=== PATIENT | female | born 1980 | race Caucasian/White ===

== ENCOUNTER 2022-12-21 06:20 | Emergency (ER) | payer MEDICAID ==
[~2022-12-21] VITALS: Ht 170.2 cm; Wt 90.7 kg
[2022-12-21] MEDS ORDERED: CLINDAMYCIN HCL 150 MG CAP PO ONE (07:00)
[2022-12-21] MEDS ORDERED: cefTRIAXone 1GM/50ML D5W 50 ML IV ONE (07:00)
[2022-12-21] MEDS ORDERED: SODIUM CHLORIDE 0.9% 1,000 ML IV ONE (07:00)
[2022-12-21 07:33] LABS: Basophils # (auto) 0 10 ^3/uL (0-0.2); Eosinophils # (auto) 0.2 10 ^3/uL (0-0.8); Hemoglobin 13.5 g/dL (12.2-16.2); Lymphocytes # (auto) 0.9 10 ^3/uL (0.4-5.4); Monocytes # (auto) 0.2 10 ^3/uL (0-1.3); Nucleated Red Blood Cells % 0.3 %
[2022-12-21 07:35] LABS: Basophils % (auto) 0.7 % (0.0-2.0); Eosinophils % (auto) 8.1 % (0.0-7.0); Hematocrit 41.6 % (36.0-46.0); Lymphocytes % (auto) 31.1 % (10.0-50.0); Mean Corpuscular Hemoglobin 28.4 pg (28.0-32.0); Mean Corpuscular Hgb Conc. 32.5 g/dL (32.0-36.0); Mean Corpuscular Volume 87.5 fL (80.0-100.0); Neutrophils # (auto) 1.4 10 ^3/uL (1.6-8.6); Neutrophils % (auto) 51.1 % (37.0-80.0); Red Blood Cells 4.75 10^6/uL (4.0-5.20); White Blood Cell 2.8 10^3/uL (4.4-10.8)
[2022-12-21 07:37] LABS: Red Cell Distribution Width 26.7 % (11.8-14.3)
[2022-12-21 07:40] LABS: INR 1.58 (0.9-1.15); Partial Thromboplastin Time 31.9 SEC (24.5-34.5); Prothrombin Time 16.1 sec (9.3-11.8)
[2022-12-21] MEDS ORDERED: CLIN300C70 PO (07:46)
[2022-12-21] MEDS ORDERED: AMOX500T3 PO (07:46)
[2022-12-21 07:56] LABS: Alanine Aminotransferase 40 U/L (7-40); Albumin 3.5 g/dL (3.2-4.8); Alkaline Phosphatase 283 U/L (46-116); Anion Gap 5 (5-15); Aspartate Aminotransferase 135 U/L (13-40); BUN/Creatinine Ratio 10.6 (10.0-20.0); Blood Urea Nitrogen 7 mg/dL (9-23); Calcium 8.4 mg/dL (8.7-10.4); Carbon Dioxide 30 mmol/L (20-30); Chloride 102 mmol/L (98-107); Glucose 103 mg/dL (74-106); Potassium 3.8 mmol/L (3.5-5.1); Sodium 137 mmol/L (136-145)
[2022-12-21 07:57] LABS: Bilirubin, Total 5.3 mg/dL (0.2-1.0); Total Protein 6.6 g/dL (5.7-8.2)
[2022-12-21 08:11] LABS: Anisocytosis Slight; Platelet Estimate Decreased
[2022-12-21] MEDS ORDERED: IOHEXOL 300 MG/ML 100ML BOTTLE IJ ONE (08:20)
[2022-12-21 09:52] VITALS: PULSE 107; RESP 18; O2SAT 100
[2022-12-21] MEDS ORDERED: ONDANSETRON HCL 4 MG/2 ML VIAL IV ONE (10:30)
[2022-12-21] MEDS ORDERED: MORPHINE SULFATE 4 MG/ML SYR/VIAL IV ONE (10:30)
[2022-12-21 10:33] VITALS: TEMP 98.1
[2022-12-21 12:13] VITALS: BP 156/75; PULSE 62; RESP 18; O2SAT 96
== END 2022-12-21 12:10 | disposition home or self-care (01) ==
LOC: ER 06:20 → EDBD 06:20 → ER 12:10
DX: K04.7 Periapical abscess without sinus (principal); I10 Essential (primary) hypertension; F17.210 Nicotine dependence, cigarettes, uncomplicated; Z86.2 Personal history of diseases of the blood and blood-forming organs and certain disorders involving the immune mechanism; Z98.890 Other specified postprocedural states; Z88.8 Allergy status to other drugs, medicaments and biological substances; Z79.899 Other long term (current) drug therapy
CPT/HCPCS: 36415; 70487; 74176; 80053; 83605; 85025; 85610; 85730; 87040; 93970; 96365; 96375; 99285; J0696; J2270; J2405; Q9967

== ENCOUNTER 2024-01-26 04:32 | Inpatient (IN) | payer MEDICAID ==
[2024-01-26] VITALS (8 sets, daily range): BP systolic 102–122; BP diastolic 53–66; PULSE 83–122; RESP 13–20; TEMP 97.5–99; O2SAT 97
[~2024-01-26] VITALS: Ht 175.3 cm; Wt 131.0 kg
[~2024-01-26 04:32] MED LIST: AMOX500T3 PO; CLIN1CAP70 PO
[2024-01-26] MEDS ORDERED: LORazepam 2MG/ML-1ML VIAL IV ONE (05:00)
[2024-01-26] MEDS ORDERED: diphenhdrAMINE HCL 50 MG/1 ML VL IM ONE (05:15)
[2024-01-26] MEDS: diphenhdrAMINE HCL 50 MG/1 ML VL IV ONE (05:19)
[2024-01-26] MEDS: HALOPERIDOL LACTATE 5 MG/ML INJ VIAL IM ONE (05:19)
[2024-01-26] MEDS: LORazepam 2MG/ML-1ML VIAL IM ONE (05:19)
[2024-01-26] MEDS: SODIUM CHLORIDE 0.9% 1,000 ML IV ONE ×2 (05:53→09:55)
--- NOTE | 2024-01-26 07:04 | ED.PDOC ---
Altered Mental Status HPI Comments 43-year-old female with PMHx Anemia, HTN presents with AMS since this morning. Per at bedside patient was at her baseline yesterday. This morning she woke up confused, incontinent of stool. He reports history of fatty liver disease with elevations in Ammonia. She is on lactulose. He states patient had been constipated recently, reporting abdominal pain. Per EMS patient was combative towards EMS personele. She received Benadryl, Haldol, Ativan on arrival for sedation. denies any recent head injury or other known cause for AMS. Unable to obtain history from patient due to AMS. Chief Complaint: ALOC Time Seen by MD: 06:49 Primary Care Provider: OSCAR Reviewed Notes: [employer]fection[employer] Laboratory Manager Notes, Medications, Allergies Allergies: Coded Allergies: Sulfa Antibiotics (Verified Allergy, Severe, RASH, 01/10/15) Codeine (Verified Adverse Reaction, Severe, NAUSEA, 04/08/11) Home Meds Active Scripts Clindamycin Hcl (Clindamycin Hcl) 300 Mg Cap, 300 MG PO TID for 10 Days, #30 CAP Prov:CADE ALEXANDER MD 12/21/22 Amoxicillin Trihydrate (Amoxicillin) 500 Mg Tab, 1 TAB PO TID for 10 Days, #30 TAB Prov:CADE ALEXANDER MD 12/21/22 Information Source: Spouse Mode of Arrival: EMS Severity: Moderate Timing: Hours Duration: Since onset Prehospital treatment: Accucheck (120 blood sugar ) Quality: Decreased Alertness, Change in Behavior, Confusion Recent: None History of: None Associated Signs and Symptoms: None Vital Signs Vital Signs Date Time Temp Pulse Resp B/P (MAP) Pulse Ox O2 Delivery O2 Flow Rate FiO2 01/26/24 13:12 109 01/26/24 13:09 97.8 13 122/54 97.8 01/26/24 13:01 98 01/26/24 07:58 Room Air* 0 21 Physical Exam General: Patient is lethargic, responsive to pain, Skin: Skin in warm, dry and intact without rashes or lesions. Appropriate color for ethnicity. Nailbeds pink with no cyanosis. HEENT: The head is normocephalic and atraumatic. Conjunctivae are clear without exudates or hemorrhage. Sclera is non-icteric. Face appears swollen. Neck: The neck is supple with normal range of motion. No JVD. Cardiac: Heart rate and rhythm are normal. No murmurs, gallops, or rubs are auscultated. Respiratory: No signs of respiratory distress. Lung sounds are clear in all lobes bilaterally without rales, ronchi, or wheezes. Abdominal: Abdomen is soft, non-tender without distention. Surgical scar present. Umbilicus is midline without herniation. Bowel sounds are present and normoactive in all four quadrants. Extremities: Multiple abrasions and excoriations over the bilateral lower extremities. Neurological: Patient is obtunded, responds to pain, spontaneous eye opening, moving all extremities spontaneously Review of Systems: Unable to assess Past Medical History PAST MEDICAL HISTORY: Anemia, HTN Surgical History: , Hernia Repair Family History Family History: No family hx of DM, No family hx of Heart fartun, No family hx of HTN Social History Smoker: Cigarettes Alcohol: Occasionally Drugs: Denies Drug Use Lives In: Home Was a procedure done? Was a procedure done?: No Differential Diagnosis (ALOC) Differential Diagnosis: Dehydration, Hypoglycemia, Encephalopathy, Mass Lesion, Drug Overdose, ETOH Intoxication (Hyperammonemia, urinary tract infection, other infection), Other X-Ray, Labs, Meds, VS Vital Signs Date Time Temp Pulse Resp B/P (MAP) Pulse Ox O2 Delivery O2 Flow Rate FiO2 01/26/24 13:12 109 01/26/24 13:09 97.8 109 13 122/54 97.8 01/26/24 13:01 98.6 113 18 101/68 (79) 98 98.6 01/26/24 12:51 98.7 105 15 102/53 98.7 01/26/24 12:11 102 15 91/43 (59) 98 01/26/24 11:15 103 26 99/42 (61) 98 01/26/24 10:00 112 16 91/39 (56) 99 01/26/24 09:31 140 01/26/24 08:00 98.5 124 18 91/58 (69) 99 98.5 01/26/24 07:58 122 20 97 Room Air* 0 21 01/26/24 06:00 125 11 141/119 (126) 100 01/26/24 05:00 Room Air* 0 21 01/26/24 05:00 97.2 115 20 141/76 (97) 97 97.2 01/26/24 04:43 97.2 115 20 141/76 (97) 97 Lab Test 01/26/24 12:30 01/26/24 11:23 01/26/24 09:15 01/26/24 07:00 Range/Units Urine Color Yellow Yellow Urine Clarity Clear Clear Urine pH 6.0 5.0-9.0 Urine Specific [place] 1.043 H 1.001-1.035 Urine Protein Negative Negative Urine Ketones 1+ H Negative Urine Blood Negative Negative /uL Urine Nitrite Negative Negative Urine Bilirubin Negative Negative Urine Urobilinogen 4 H Negative mg/dL Urine Leukocyte Esterase Negative Negative /uL Urine RBC 1 0 - 4 /hpf Urine WBC 1 0 - 5 /hpf Urine Squamous Epithelial Cells Few <5 /hpf Urine Bacteria Few H None Seen /hpf Urine Glucose Normal Normal mg/dL Urine Opiates Screen Neg NEGATIVE Urine Fentanyl Screen Neg NEGATIVE Urine Barbiturates Screen Neg NEGATIVE Urine Phencyclidine Screen Neg NEGATIVE Urine Amphetamines Screen Neg NEGATIVE Urine Benzodiazepines Screen Neg NEGATIVE Urine Cocaine Screen Neg NEGATIVE Urine Cannabinoids Screen Neg NEGATIVE Lactic Acid Level 1.9 2.7 *H 0.4-2.0 mmol/L White Blood Count 4.8 4.4-10.8 10^3/uL Red Blood Count 2.67 L 4.0-5.20 10^6/uL Hemoglobin 6.3 *L 12.2-16.2 g/dL Hematocrit 20.7 L 36.0-46.0 % Mean Corpuscular Volume 77.6 L 80.0-100.0 fL Mean Corpuscular Hemoglobin 23.4 L 28.0-32.0 pg Mean Corpuscular Hemoglobin Concent 30.2 L 32.0-36.0 g/dL Red Cell Distribution Width 22.0 H 11.8-14.3 % Platelet Count 107 L 140-450 10^3/uL Mean Platelet Volume 9.0 6.9-10.8 fL Neutrophils (%) (Auto) 73.2 37.0-80.0 % Lymphocytes (%) (Auto) 15.9 10.0-50.0 % Monocytes (%) (Auto) 9.7 0.0-12.0 % Eosinophils (%) (Auto) 0.7 0.0-7.0 % Basophils (%) (Auto) 0.5 0.0-2.0 % Neutrophils # (Auto) 3.5 1.6-8.6 10 ^3/uL Lymphocytes # (Auto) 0.8 0.4-5.4 10 ^3/uL Monocytes # (Auto) 0.5 0-1.3 10 ^3/uL Eosinophils # (Auto) 0 0-0.8 10 ^3/uL Basophils # (Auto) 0 0-0.2 10 ^3/uL Nucleated Red Blood Cells 0.2 % Sodium Level 139 136-145 mmol/L Potassium Level 3.0 L 3.5-5.1 mmol/L Chloride Level 105 98-107 mmol/L Carbon Dioxide Level 25 20-31 mmol/L Anion Gap 9 5-15 Blood Urea Nitrogen 13 9-23 mg/dL Creatinine 0.90 0.550-1.02 mg/dL Glomerular Filtration Rate Calc 81 >90 mL/min BUN/Creatinine Ratio 14.4 10.0-20.0 Serum Glucose 112 H 74-106 mg/dL Calcium Level 8.6 L 8.7-10.4 mg/dL Magnesium Level 1.8 1.6-2.6 mg/dL Total Bilirubin 6.0 H 0.2-1.0 mg/dL Aspartate Amino Transferase (AST) 67 H 13-40 U/L Alanine Aminotransferase (ALT) 34 7-40 U/L Alkaline Phosphatase 148 H 46-116 U/L Ammonia 47 H 11-32 umol/L Total Protein 4.8 L 5.7-8.2 g/dL Albumin 2.7 L 3.2-4.8 g/dL Lipase 25 12-53 U/L Beta HCG, Quantitative 1.1 L 1.5-4.2 mIU/mL Plasma/Serum Blood Alcohol < 3.0 <10 mg/dL Test 01/26/24 06:00 Range/Units Prothrombin Time 18.3 H 9.3-11.8 sec Prothrombin Time INR 1.80 H 0.9-1.15 Current Medications Medications (Trade) Dose Ordered Sig/Sherice Route Start Time Stop Time Status Last Admin Sodium Chloride 1,000 ml @ 30 mls/hr Q24H ONCE IV 01/26/24 05:00 01/27/24 04:59 01/26/24 05:53 Haloperidol Lactate (Haldol) 10 mg ONCE ONCE IM 01/26/24 05:15 01/26/24 05:16 DC 01/26/24 05:19 Lorazepam (Ativan Inj) 2 mg ONCE ONCE IM 01/26/24 05:15 01/26/24 05:16 DC 01/26/24 05:19 Diphenhydramine HCl (Benadryl Injection) 50 mg ONCE ONCE IV 01/26/24 05:15 01/26/24 05:16 DC 01/26/24 05:19 Potassium Chloride 100 ml @ 50 mls/hr ONCE ONCE IV 01/26/24 08:15 01/26/24 10:14 DC 01/26/24 09:28 Sodium Chloride 1,000 ml @ 1,000 mls/hr Q1H ONCE IV 01/26/24 09:45 01/26/24 10:44 DC 01/26/24 09:55 Amiodarone HCl 100 ml @ 618 mls/hr ONCE ONCE IV 01/26/24 09:45 01/26/24 10:00 DC 01/26/24 10:20 [place] [id number] Ph: [phone] DIAGNOSTIC IMAGING Diagnostic Imaging Report : [id number] Signed PATIENT: YOU ROBERTS ACCT: [id number] UNIT: [id number] : 1980 LOC: ER ROOM / BED: / AGE / SEX: 43 / F ADM STATUS: REG ER SERVICE [id number] ORDERING PHYSICIAN: DIANNA HYMAN MD PROCEDURE(s): HWOCT - HEAD WITHOUT CONTRAST REASON: [facility] ORDER NUMBER(s): [id number], ACCESSION NUMBER(s): [id number] EXAM: CT HEAD WITHOUT CONTRAST HISTORY: [facility] COMPARISON: None TECHNIQUE: Axial images were obtained and reformatted in coronal and sagittal planes. All CT scans at this medical facility are performed using dose modulation techniques as appropriate to a performed exam including the following: Automated exposure control was utilized; adjustment of the MA and/or KV according to patient size; and use of iterative reconstruction technique. CT Dose: CTDI volume is 95.71 mGy. Dose-length product is 5560.73 mGy*cm FINDINGS: Supratentorial Region: No evidence for large acute territorial ischemia. No intracranial hemorrhage is noted. Posterior Fossa: No acute abnormality. Brainstem: Unremarkable. Sellar/Suprasellar Region: Unremarkable. Ventricles, Cisterns, Sulci: Age-appropriate. Orbits: Unremarkable. Paranasal Sinuses: Unremarkable. Mastoid Air Cells: Unremarkable. Vasculature: Unremarkable. Bones/Soft Tissues: No acute abnormality. Other: None. IMPRESSION: 1. Suboptimal exam motion degraded study despite multiple repeat acquisitions. 2. No intracranial hemorrhage, midline shift or clear signs of large acute territorial ischemia. ATED BY: LAMAR KRISHNAMURTHY MD DICTATED DATE/TIME: 01/26/24849 SIGNED BY: LAMAR KRISHNAMURTHY MD SIGNED DATE/TIME: 01/26/24849 CC: [place] [id number] Ph: [phone] DIAGNOSTIC IMAGING Diagnostic Imaging Report : [id number] Signed PATIENT: YOU ROBERTS ACCT: [id number] UNIT: [id number] : 1980 LOC: ER ROOM / BED: / AGE / SEX: 43 / F ADM STATUS: REG ER SERVICE 8 ORDERING PHYSICIAN: DIANNA HYMAN MD PROCEDURE(s): ABPLIV - CT AB PEL WITH IV CON ONLY REASON: ABDOMINAL PAIN, AMS, HX FATTY LIVER DISEASE ORDER NUMBER(s): [id number], ACCESSION NUMBER(s): [id number] Exam: CT CT AB PEL WITH IV CON ONLY History: ABDOMINAL PAIN, AMS, HX FATTY LIVER DISEASE Comparison Study: 12/21/2022 TECHNIQUE: A digital hospital director image was obtained. During the uneventful, intravenous administration of contrast material, multislice data acquisition was obtained through the abdomen and pelvis. The data set was subsequently reconstructed into axial images. Images were reviewed on a work station using a combination of axial and multiplanar using a variety of window levels and settings. 100 cc of Omnipaque 300 contrast was injected intravenously. All CT scans at this medical facility are performed using dose modulation techniques as appropriate to a performed exam including the following:Automated exposure control was utilized; adjustment of the MA and/or KV according to patient size; and use of iterative reconstruction technique. Radiation Dose Information: CT Dose: CTDI volume is 23.3 mGy. Dose-length product is 5561 mGy*cm FINDINGS: There are gastric postsurgical changes likely related to bypass surgery. There are no dilated small or large bowel loops on the current study. There are diverticula in the distal colon without evidence of acute diverticulitis. There is diffuse fatty infiltration of the liver. The liver again demonstrates nodular contour suggesting cirrhotic morphology. Gallbladder is surgically absent. There are stable calcifications in the bilateral adrenal glands. The pancreas, kidneys, and spleen appear within normal limits. There is no gross evidence of abdominal lymphadenopathy. There is small amount of perihepatic ascites. There is no free air. The abdominal aorta and IVC appear within normal limits. The bladder appears unremarkable. The uterus appears within normal limits. There is no evidence of a pelvic mass or lymphadenopathy. There is no free fluid collection. Lung bases are clear. There is no acute osseous abnormality. IMPRESSION: 1. There is no acute process in the abdomen and pelvis.. 2. Gastric postsurgical changes likely related to bypass surgery. There are no dilated small or large bowel loops. 3. Diffuse hepatic steatosis. The liver also demonstrates nodular contour suggesting cirrhotic morphology. 4. Small amount perihepatic ascites. HS:Y ATED BY: RYAN CASTAÑEDA MD DICTATED DATE/TIME: 01/26/24906 SIGNED BY: RYAN CASTAÑEDA MD SIGNED DATE/TIME: 01/26/24906 CC: Time of 1ST Reevaluation: 07:19 Reevaluation 1ST: Unchanged Patient Education/Counseling: Other (ALOC) Family Education/Counseling: Diagnosis, Treatment, Prognosis Departure 1 Departure Time of Disposition: 09:01 Impression: Primary Impression: Altered mental status Additional Impressions: Metabolic encephalopathy Severe anemia Hyperammonemia Hypokalemia Ventricular tachycardia, non-sustained Disposition: 09 ADMITTED INPATIENT Condition: Serious Comments 43-year-old female who presents with altered mental status. Workup reveals elevated ammonia level, severe anemia requiring blood transfusion, hypokalemia. 2 units PRBCs initiated in the ED, potassium replaced. During the ED observation patient underwent a short run of V-tach for which she was administered amiodarone bolus. No further V-tach. Patient initially hypotensive. Blood pressure improved after IV fluids Critical Care Note Critical Care Time?: Yes (45 min-critical care time only) Critical care comment: Due to a high probability of clinically significant, life threatening deterioration, the patient required my highest level of preparedness to intervene emergently and I personally spent this critical care time directly and personally managing the patient. This critical care time included obtaining a history; examining the patient; pulse oximetry; ordering and review of studies; arranging urgent treatment with development of a management plan; evaluation of patient's response to treatment; frequent reassessment; and, discussions with other providers. This critical care time was performed to assess and manage the high probability of imminent, life-threatening deterioration that could result in multi-organ failure. It was exclusive of separately billable procedures and treating other patients and teaching time. Please see my other sections and the rest of the note for further information on patient assessment and treatment. Stability Stability form required: No I personally scribed for DIANNA HYMAN MD ([email or web address]) on 01/26/24 at 07:04. Electronically submitted by Derick Monreal ([email or web address]). I personally scribed for DIANNA HYMAN MD ([email or web address]) on 01/26/24 at 10:27. Electronically submitted by Vonnie Faria ([email or web address]). DIANNA HYMAN MD Jan 26, 2024 07:04
[2024-01-26 07:19] LABS: Basophils # (auto) 0 10 ^3/uL (0-0.2); Basophils % (auto) 0.5 % (0.0-2.0); Eosinophils # (auto) 0 10 ^3/uL (0-0.8); Eosinophils % (auto) 0.7 % (0.0-7.0); Hematocrit 20.7 % (36.0-46.0); Lymphocytes # (auto) 0.8 10 ^3/uL (0.4-5.4); Lymphocytes % (auto) 15.9 % (10.0-50.0); Mean Corpuscular Hemoglobin 23.4 pg (28.0-32.0); Mean Corpuscular Hgb Conc. 30.2 g/dL (32.0-36.0); Mean Corpuscular Volume 77.6 fL (80.0-100.0); Monocytes # (auto) 0.5 10 ^3/uL (0-1.3); Monocytes % (auto) 9.7 % (0.0-12.0); Neutrophils # (auto) 3.5 10 ^3/uL (1.6-8.6); Neutrophils % (auto) 73.2 % (37.0-80.0); Nucleated Red Blood Cells % 0.2 %; Platelet Count (auto) 107 10^3/uL (140-450); Red Blood Cells 2.67 10^6/uL (4.0-5.20); White Blood Cell 4.8 10^3/uL (4.4-10.8)
[2024-01-26] MEDS: NALOXONE HCL 0.4 MG/ML VIAL IV ONE (07:24)
[2024-01-26 07:26] LABS: Alanine Aminotransferase 34 U/L (7-40); Albumin 2.7 g/dL (3.2-4.8); Alkaline Phosphatase 148 U/L (46-116); Anion Gap 9 (5-15); Aspartate Aminotransferase 67 U/L (13-40); BUN/Creatinine Ratio 14.4 (10.0-20.0); Blood Alcohol < 3.0 mg/dL (<10); Blood Urea Nitrogen 13 mg/dL (9-23); Calcium 8.6 mg/dL (8.7-10.4); Carbon Dioxide 25 mmol/L (20-31); Chloride 105 mmol/L (98-107); Glucose 112 mg/dL (74-106); Hemoglobin 6.3 g/dL (12.2-16.2); Sodium 139 mmol/L (136-145); Total Protein 4.8 g/dL (5.7-8.2)
[2024-01-26] MEDS: IOHEXOL 300 MG/ML 100ML BOTTLE IJ ONE (07:57)
--- NOTE | 2024-01-26 08:52 | DVH ---
EXAM: CT HEAD WITHOUT CONTRAST HISTORY: AMS COMPARISON: None TECHNIQUE: Axial images were obtained and reformatted in coronal and sagittal planes. All CT scans at this medical facility are performed using dose modulation techniques as appropriate t o a performed exam including the following: Automated exposure control was utilized; adjustment of th e MA and/or KV according to patient size; and use of iterative reconstruction technique. CT Dose: CTDI volume is 95.71 mGy. Dose-length product is 5560.73 mGy*cm FINDINGS: Supratentorial Region: No evidence for large acute territorial ischemia. No intracranial hemorrhage is noted. Posterior Fossa: No acute abnormality. Brainstem: Unremarkable. Sellar/Suprasellar Region: Unremarkable. Ventricles, Cisterns, Sulci: Age-appropriate. Orbits: Unremarkable. Paranasal Sinuses: Unremarkable. Mastoid Air Cells: Unremarkable. Vasculature: Unremarkable. Bones/Soft Tissues: No acute abnormality. Other: None. IMPRESSION: 1. Suboptimal exam motion degraded study despite multiple repeat acquisitions. 2. No intracranial hemorrhage, midline shift or clear signs of large acute territorial ischemia.
--- NOTE | 2024-01-26 09:09 | DVH ---
Exam: CT CT AB PEL WITH IV CON ONLY History: ABDOMINAL PAIN, AMS, HX FATTY LIVER DISEASE Comparison Study: 12/21/2022 TECHNIQUE: A digital port traffic manager image was obtained. During the uneventful, intravenous administration of c ontrast material, multislice data acquisition was obtained through the abdomen and pelvis. The data s et was subsequently reconstructed into axial images. Images were reviewed on a work station using a c ombination of axial and multiplanar using a variety of window levels and settings. 100 cc of Omnipaqu e 300 contrast was injected intravenously. All CT scans at this medical facility are performed using dose modulation techniques as appropriate t o a performed exam including the following:Automated exposure control was utilized; adjustment of the MA and/or KV according to patient size; and use of iterative reconstruction technique. Radiation Dose Information: CT Dose: CTDI volume is 23.3 mGy. Dose-length product is 5561 mGy*cm FINDINGS: There are gastric postsurgical changes likely related to bypass surgery. There are no dilated small o r large bowel loops on the current study. There are diverticula in the distal colon without evidence of acute diverticulitis. There is diffuse fatty infiltration of the liver. The liver again demonstrates nodular contour sugges ting cirrhotic morphology. Gallbladder is surgically absent. There are stable calcifications in the b ilateral adrenal glands. The pancreas, kidneys, and spleen appear within normal limits. There is no gross evidence of abdominal lymphadenopathy. There is small amount of perihepatic ascites . There is no free air. The abdominal aorta and IVC appear within normal limits. The bladder appears unremarkable. The uterus appears within normal limits. There is no evidence of a pelvic mass or lymphadenopathy. There is no free fluid collection. Lung bases are clear. There is no acute osseous abnormality. IMPRESSION: 1. There is no acute process in the abdomen and pelvis.. 2. Gastric postsurgical changes likely related to bypass surgery. There are no dilated small or large bowel loops. 3. Diffuse hepatic steatosis. The liver also demonstrates nodular contour suggesting cirrhotic morpho logy. 4. Small amount perihepatic ascites. HS:Y
[2024-01-26 09:15] LABS: INR 1.8 (0.9-1.15); Prothrombin Time 18.3 sec (9.3-11.8)
[2024-01-26] MEDS: POTASSIUM CHL 20MEQ/100ML 100 ML IV ONE (09:28)
[2024-01-26] MEDS: AMIODARONE BOLUS KIT 100 ML IV ONE (10:20)
[2024-01-26 10:29] LABS: Lactic Acid w/Reflex 2.7 mmol/L (0.4-2.0)
--- NOTE | 2024-01-26 11:36 | DVH ---
EXAM: XY CHEST XRAY 1 VIEW Indication:ams Technique: Single frontal view of the chest was obtained Comparison: None FINDINGS: Lines and Tubes: None Lungs: No focal consolidation. Low lung volumes. Pleura: No effusion. No pneumothorax. Cardiomediastinal contours: Unremarkable Bones: No acute osseous abnormality. IMPRESSION: No focal consolidation. Low lung volumes.
[2024-01-26 12:51] LABS: Urine Bacteria FEW /hpf (None Seen); Urine Blood Negative /uL (Negative); Urine Clarity Clear (Clear); Urine Color Yellow (Yellow); Urine Protein, UAD Negative (Negative); Urine Specific Gravity 1.043 (1.001-1.035); Urine Urobilinogen 4 mg/dL (Negative); Urine WBC 1 /hpf (0 - 5)
[2024-01-26 12:55] LABS: Amphetamine Screen, Urine Neg (NEGATIVE); Barbiturate Scree,Urine Neg (NEGATIVE); Benzodiazephine Screen, Urine Neg (NEGATIVE); Cannabinoid Screen, Urine Neg (NEGATIVE); Cocaine Screen, Urine Neg (NEGATIVE); Opiate Scree,Urine Neg (NEGATIVE); Phencyclidine Screen, Urine Neg (NEGATIVE)
[2024-01-26] MEDS: oxyCODONE HCL 5MG TAB PO ONE (14:26)
[2024-01-26] MEDS: MAGNESIUM SULFATE 1GM/100ML 100 ML IV SCH (14:31)
[2024-01-26] MEDS ORDERED: NITROGLYCERIN 0.4 MG SL TAB SL PRN (15:00)
[2024-01-26] MEDS ORDERED: MORPHINE SULFATE INJ 2 MG/ml SYRG IV PRN (15:00)
[2024-01-26] MEDS ORDERED: ONDANSETRON HCL 4 MG/2 ML VIAL IV PRN (15:00)
--- NOTE | 2024-01-26 15:40 | DVHHP2 ---
History of Present Illness Reason for Visit: ALOC History of Present Illness 43-year-old female presents via EMS to the ED, due to altered mental status, patient woke up confused, incontinent of stool. Patient is noted to be on lactulose, patient's states patient was constipated recently with abdominal pain. Patient was reportedly combative towards EMS personnel. Patient's CT head is negative for acute changes. Patient's CT abdomen shows soham er cirrhosis, fatty liver. Patient was noted to have an 7 seconds of V-tach while in ER. Patient's hemoglobin 6.3 platelets 107, lactic acid 2.7, ammonia 47, potassium 3.0. Patient's potassium, Mag were replaced and amiodarone IV was given to patient. Cardiology was consulted. Around 12:30 today patient became oriented x3, was not able to recall events that led to the ER visit but was following simple commands and answering questions, bilateral lower extremity edema also noted 2+ pitting. Patient denies chest pain, headache, dizziness, diaphoresis, shortness of breath, abdominal pain, no nausea, vomiting, fever, or chills endorsed by the patient. Patient was admitted for further evaluation medical management. Past Medical History Anemia, hypertension Past Surgical History , hernia repair Family History Reviewed noncontributory to the management of this case ALCOHOL: occassional Drugs: None Review of Systems Constitutional: Yes: Malaise; No: Fever, Chills, Sweats, Weakness, Other Eyes: No: Pain, Vision change, Conjunctivae inflammation, Eyelid inflammation, Other, Redness ENT: No: Ear pain, Ear discharge, Nose pain, Nose discharge, Nose congestion, Mouth pain, Mouth swelling, Throat pain, Throat swelling, Other Respiratory: No: Cough, Dry, Shortness of breath, SOB with excertion, Wheezing, Hemoptysis, Pleuritic Pain, Sputum, Wheezing, Other Cardiovascular: Edema (Bilateral lower extremities 2+); No: Chest Pain, Palpitations, Orthopnea, Paroxysmal Noc. Dyspnea, Lt Headedness, Other Gastrointestinal: No: Nausea, Vomiting, Abdominal Pain, Diarrhea, Constipation, Melena, Hematochezia, Other Genitourinary: No Dysuria, No Frequency, No Incontinence, No Hematuria, No Retention, No Other Musculoskeletal: No: other, neck pain, shoulder pain, arm pain, back pain, hand pain, leg pain, foot pain Skin: No: Rash, Lesions, Jaundice, Bruising, Other Neurological: No: Weakness, Numbness, Incoordination, Change in speech, Confusion, Seizures, Other Allergies: Coded Allergies: Sulfa Antibiotics (Verified Allergy, Severe, RASH, 01/10/15) Codeine (Verified Adverse Reaction, Severe, NAUSEA, 04/08/11) Medications Current Medications Medications Dose Ordered Sig/Sherice Route Start Time Stop Time Status Last Admin Dose Admin Acetaminophen 650 mg Q6HP PRN PO 01/26/24 15:00 Ondansetron HCl 4 mg Q4HP PRN IV 01/26/24 15:00 Morphine Sulfate 1 mg Q4HPRN PRN IV 01/26/24 15:00 Nitroglycerin 0.4 mg Q5MINP PRN SL 01/26/24 15:00 Morphine Sulfate 2 mg Q30M PRN IV 01/26/24 15:00 Sodium Chloride 10 ml Q8HR IV 01/26/24 22:00 Exam Vital Signs Vital Signs Date Time Temp Pulse Resp B/P (MAP) Pulse Ox O2 Delivery O2 Flow Rate FiO2 01/26/24 15:32 99.0 104 18 108/61 99.0 01/26/24 15:31 97 01/26/24 07:58 Room Air* 0 21 General Appearance: Alert, Oriented X3, Cooperative, mild distress HEENT: Atraumatic, PERRLA, EOMI, Mucous membr. moist/pink Respiratory: Clear to auscultation, Normal air movement Cardiovascular: Regular rate, Normal S1, Normal S2, No murmurs Abdominal: Normal bowel sounds, Soft, No tenderness, No hepatospenomegaly, No masses Extremities: No clubbing, No cyanosis, Normal pulses, No tenderness/swelling, Other (Bilateral lower extremity 2+ pitting edema) Skin: No rashes, No breakdown, No significant lesion Neuro: Normal gait, Normal speech, Strength at 5/5 X4 ext, Normal tone, Sensation intact, Cranial nerves 3-12 NL, Reflexes 2+ Psych/Mental Status: Mental status NL, Mood NL Labs/Xrays Labs, ED notes and imaging reviewed Labs Test 01/26/24 12:30 01/26/24 11:23 01/26/24 07:00 01/26/24 06:00 Range/Units Urine Color Yellow Yellow Urine Clarity Clear Clear Urine pH 6.0 5.0-9.0 Urine Specific [place] 1.043 H 1.001-1.035 Urine Protein Negative Negative Urine Ketones 1+ H Negative Urine Blood Negative Negative /uL Urine Nitrite Negative Negative Urine Bilirubin Negative Negative Urine Urobilinogen 4 H Negative mg/dL Urine Leukocyte Esterase Negative Negative /uL Urine RBC 1 0 - 4 /hpf Urine WBC 1 0 - 5 /hpf Urine Squamous Epithelial Cells Few <5 /hpf Urine Bacteria Few H None Seen /hpf Urine Glucose Normal Normal mg/dL Urine Opiates Screen Neg NEGATIVE Urine Fentanyl Screen Neg NEGATIVE Urine Barbiturates Screen Neg NEGATIVE Urine Phencyclidine Screen Neg NEGATIVE Urine Amphetamines Screen Neg NEGATIVE Urine Benzodiazepines Screen Neg NEGATIVE Urine Cocaine Screen Neg NEGATIVE Urine Cannabinoids Screen Neg NEGATIVE Lactic Acid Level 1.9 0.4-2.0 mmol/L White Blood Count 4.8 4.4-10.8 10^3/uL Red Blood Count 2.67 L 4.0-5.20 10^6/uL Hemoglobin 6.3 *L 12.2-16.2 g/dL Hematocrit 20.7 L 36.0-46.0 % Mean Corpuscular Volume 77.6 L 80.0-100.0 fL Mean Corpuscular Hemoglobin 23.4 L 28.0-32.0 pg Mean Corpuscular Hemoglobin Concent 30.2 L 32.0-36.0 g/dL Red Cell Distribution Width 22.0 H 11.8-14.3 % Platelet Count 107 L 140-450 10^3/uL Mean Platelet Volume 9.0 6.9-10.8 fL Neutrophils (%) (Auto) 73.2 37.0-80.0 % Lymphocytes (%) (Auto) 15.9 10.0-50.0 % Monocytes (%) (Auto) 9.7 0.0-12.0 % Eosinophils (%) (Auto) 0.7 0.0-7.0 % Basophils (%) (Auto) 0.5 0.0-2.0 % Neutrophils # (Auto) 3.5 1.6-8.6 10 ^3/uL Lymphocytes # (Auto) 0.8 0.4-5.4 10 ^3/uL Monocytes # (Auto) 0.5 0-1.3 10 ^3/uL Eosinophils # (Auto) 0 0-0.8 10 ^3/uL Basophils # (Auto) 0 0-0.2 10 ^3/uL Nucleated Red Blood Cells 0.2 % Sodium Level 139 136-145 mmol/L Potassium Level 3.0 L 3.5-5.1 mmol/L Chloride Level 105 98-107 mmol/L Carbon Dioxide Level 25 20-31 mmol/L Anion Gap 9 5-15 Blood Urea Nitrogen 13 9-23 mg/dL Creatinine 0.90 0.550-1.02 mg/dL Glomerular Filtration Rate Calc 81 >90 mL/min BUN/Creatinine Ratio 14.4 10.0-20.0 Serum Glucose 112 H 74-106 mg/dL Calcium Level 8.6 L 8.7-10.4 mg/dL Magnesium Level 1.8 1.6-2.6 mg/dL Total Bilirubin 6.0 H 0.2-1.0 mg/dL Aspartate Amino Transferase (AST) 67 H 13-40 U/L Alanine Aminotransferase (ALT) 34 7-40 U/L Alkaline Phosphatase 148 H 46-116 U/L Ammonia 47 H 11-32 umol/L Total Protein 4.8 L 5.7-8.2 g/dL Albumin 2.7 L 3.2-4.8 g/dL Lipase 25 12-53 U/L Beta HCG, Quantitative 1.1 L 1.5-4.2 mIU/mL Plasma/Serum Blood Alcohol < 3.0 <10 mg/dL Prothrombin Time 18.3 H 9.3-11.8 sec Prothrombin Time INR 1.80 H 0.9-1.15 Assessment/Plan Assessment/Plan ALOC/metabolic encephalopathy Admit to telemetry Lactic acid trending down Monitor neuro status Consider neurology consult Severe Anemia Hemoglobin 6.3 2 units PRBCs ordered for transfusion Monitor hemoglobin and hematocrit Consider heme/oncol consult Cardiac arrhythmia, V-tach nonsustained 7 seconds of V-tach today Amiodarone given cardiology consult ordered- follow up recommendations Hypokalemia Potassium 3.0 Supplemented Monitor electrolytes, replace as needed History liver cirrhosis, with small ascites Reportedly was taking lactulose Ammonia 47 Chronic pain Pain Medication p.r.n. Be cautious not to over sedate FEN/PPX GI prophylaxis - Protonix VTE prophylaxis not indicate Cardiac diet Plan discussed with: Patient My Orders Orders - JACKIE GROVES Procedure Category Date Status Time * Cardiology Consult CONS 01/26/24 Transmitted 14:51 Admit ADMIT 01/26/24 Transmitted 14:52 Code Status CODE 01/26/24 Transmitted 14:52 Vital Signs [facility] 01/26/24 In Process 14:52 Review Orders With [facility] 01/26/24 In Process Adm.Md 14:52 Acetaminophen Tablet PHA 01/26/24 In Process (Tylenol Tablet) 15:00 Notify Of Changes [facility] 01/26/24 In Process From Base 14:52 Advance Directive [facility] 01/26/24 In Process 14:52 Basic Metabolic Panel LAB 01/27/24 Verified 04:00 Complete Blood Count LAB 01/27/24 Verified 04:00 Patient Condition ORDERS 01/26/24 Transmitted 14:52 Allergies [facility] 01/26/24 In Process 14:52 Ondansetron Hcl PHA 01/26/24 In Process (Zofran) 15:00 Morphine Sulfate PHA 01/26/24 In Process Injection 15:00 Cardiac DIET 01/26/24 Transmitted Diet-2gna,Lofat,Lochol Dinner Nitroglycerin PHA 01/26/24 In Process Sublingual (Ntrostat 15:00 Morphine Sulfate PHA 01/26/24 In Process Injection 15:00 Sodium Chloride Lock PHA 01/26/24 In Process (Saline Lock Ns) 22:00 Oxygen By Nasal RT 01/26/24 Transmitted Cannula 14:52 Stat Ekg For Chest [facility] 01/26/24 In Process Pain 14:52 Notify Md Of Changes [facility] 01/26/24 In Process From Base 14:52 Honing Machine Operator Tool For [facility] 01/26/24 In Process 24 Hours 14:52 Emergency Dysrhythmia [facility] 01/26/24 In Process Protocol 14:52 Rhythm Strips Once [facility] 01/26/24 In Process Every Shift 14:52 Date of Service: Jan 26, 2024 Billing Provider: JACKIE GROVES Common Visit Codes: [id number] INP/OBS CARE (HIGH) JACKIE GROVES Jan 26, 2024 15:40
--- NOTE | 2024-01-26 17:34 | DVHINCON2 ---
Date Seen: Jan 26, 2024 Referring Physician BEATRICE Harry Reason for Consultation Arrhythmias History of Present Illness This is a 43-year-old female patient who presents to the emergency room with chief complaint of altered level of mentation. At the time of assessment, the patient is alert and oriented to self and place only. History obtained from patient's who was at bedside. According to the patient's , when he woke up this morning at approximately 2:00 a.m., he noticed that the patient was confused and not acting like herself. He called emergency medical services and she was brought to the emergency room for further evaluation. While in the emergency room, the patient went into a 8-second run of V-tach. No initial twelve lead electrocardiogram was done during emergency room arrival. A twelve lead electrocardiogram was ordered at time of assessment and reveals sinus tachycardia with PVCs. Significant past medical history includes hypertension, fatty liver disease, alcohol abuse, chronic back pain, and obesity. The deborah ent's reports that the patient takes prescribed lactulose at home but he thinks that the patient has not been compliant with her medications. He denies that she has any previous cardiac history. Past Medical History Past medical history reviewed. No other significant than mentioned above. Past Surgical History Gastric bypass Right knee replacement Family History Family history reviewed. Social History Alcohol abuse, one bottle of wine per day Vapes daily Denies any illicit drug use Allergies: Coded Allergies: Sulfa Antibiotics (Verified Allergy, Severe, RASH, 01/10/15) Codeine (Verified Adverse Reaction, Severe, NAUSEA, 04/08/11) Home Meds Active Scripts Clindamycin Hcl (Clindamycin Hcl) 300 Mg Cap, 300 MG PO TID for 10 Days, #30 CAP Prov:CADE ALEXANDER MD 12/21/22 Amoxicillin Trihydrate (Amoxicillin) 500 Mg Tab, 1 TAB PO TID for 10 Days, #30 TAB Prov:CADE ALEXANDER MD 12/21/22 Home Meds Home medications reviewed. Current Medications Current Medications Medications (Trade) Dose Ordered Sig/Sherice Route PRN Reason Start Time Stop Time Status Last Admin Magnesium Sulfate/ Dextrose 100 ml @ 400 mls/hr Q15M IV 01/26/24 09:45 01/26/24 10:14 DC Acetaminophen (Tylenol Tablet) 650 mg Q6HP PRN PO PAIN SCALE 1-3 OR TEMP>100.4 01/26/24 15:00 Ondansetron HCl (Zofran) 4 mg Q4HP PRN IV NAUSEA / VOMITING 01/26/24 15:00 Morphine Sulfate 1 mg Q4HPRN PRN IV SEVERE PAIN (7-10 PAIN SCALE) 01/26/24 15:00 Nitroglycerin (Ntrostat Sublingual) 0.4 mg Q5MINP PRN SL FOR CHEST PAIN 01/26/24 15:00 Morphine Sulfate 2 mg Q30M PRN IV FOR CHEST PAIN 01/26/24 15:00 Sodium Chloride (Saline Lock Ns) 10 ml Q8HR IV 01/26/24 22:00 Lactulose 30 ml BID PO 01/26/24 22:00 Torsemide (Demadex Tab) 20 mg DAILY PO 01/27/24 10:00 Pantoprazole Sodium (Protonix Tablet) 40 mg DAILY@0600 PO 01/27/24 06:00 Review of Systems Constitutional: No symptom reported Ears, Nose, & Throat: No symptom reported Eyes: No symptom reported Neurological: Altered level of mentation Pulmonary/Respiratory: No symptoms reported Cardiovascular: No symptoms reported Gastrointestinal: No symptom reported Genitourinary: No symptom reported Musculoskeletal: No symptom reported Skin: No symptom reported Psychiatric: No symptom reported Endocrine: No symptom reported Hematologic/Lymphatic: No symptom reported Vital Signs Vital Signs Date Time Temp Pulse Resp B/P (MAP) Pulse Ox O2 Delivery O2 Flow Rate FiO2 01/26/24 16:41 97.5 105 16 117/64 97.5 01/26/24 15:31 97 01/26/24 07:58 Room Air* 0 21 Physical Exam General Appearance: Cooperative. Well-developed. Well-nourished. No acute distress. Pulmonary/Respiratory: Clear, bilateral breaths sounds. Cardiovascular/Chest: Regular rate and rhythm. Peripheral Pulses: 2+ Radial (R). 2+ Radial (L). 2+ Pedal (R). 2+ Pedal (L) Abdominal Exam: Normal bowel sounds. Ankle Exam: 3+ pitting edema Lower extremities: 3+ pitting edema to bilateral lower extremity Neuro/Mental Status: A/OX2, confused Thoughts/Psych: Normal thought pattern. Appropriate mood and affect. Good judgment and insight. Appearance: No acute distress. Skin Exam: Healing ulcers to bilateral lower extremity. Labs/Diagnostic Data Labs Test 01/26/24 12:30 01/26/24 11:23 01/26/24 07:00 01/26/24 06:00 Range/Units Urine Color Yellow Yellow Urine Clarity Clear Clear Urine pH 6.0 5.0-9.0 Urine Specific [place] 1.043 H 1.001-1.035 Urine Protein Negative Negative Urine Ketones 1+ H Negative Urine Blood Negative Negative /uL Urine Nitrite Negative Negative Urine Bilirubin Negative Negative Urine Urobilinogen 4 H Negative mg/dL Urine Leukocyte Esterase Negative Negative /uL Urine RBC 1 0 - 4 /hpf Urine WBC 1 0 - 5 /hpf Urine Squamous Epithelial Cells Few <5 /hpf Urine Bacteria Few H None Seen /hpf Urine Glucose Normal Normal mg/dL Urine Opiates Screen Neg NEGATIVE Urine Fentanyl Screen Neg NEGATIVE Urine Barbiturates Screen Neg NEGATIVE Urine Phencyclidine Screen Neg NEGATIVE Urine Amphetamines Screen Neg NEGATIVE Urine Benzodiazepines Screen Neg NEGATIVE Urine Cocaine Screen Neg NEGATIVE Urine Cannabinoids Screen Neg NEGATIVE Lactic Acid Level 1.9 0.4-2.0 mmol/L White Blood Count 4.8 4.4-10.8 10^3/uL Red Blood Count 2.67 L 4.0-5.20 10^6/uL Hemoglobin 6.3 *L 12.2-16.2 g/dL Hematocrit 20.7 L 36.0-46.0 % Mean Corpuscular Volume 77.6 L 80.0-100.0 fL Mean Corpuscular Hemoglobin 23.4 L 28.0-32.0 pg Mean Corpuscular Hemoglobin Concent 30.2 L 32.0-36.0 g/dL Red Cell Distribution Width 22.0 H 11.8-14.3 % Platelet Count 107 L 140-450 10^3/uL Mean Platelet Volume 9.0 6.9-10.8 fL Neutrophils (%) (Auto) 73.2 37.0-80.0 % Lymphocytes (%) (Auto) 15.9 10.0-50.0 % Monocytes (%) (Auto) 9.7 0.0-12.0 % Eosinophils (%) (Auto) 0.7 0.0-7.0 % Basophils (%) (Auto) 0.5 0.0-2.0 % Neutrophils # (Auto) 3.5 1.6-8.6 10 ^3/uL Lymphocytes # (Auto) 0.8 0.4-5.4 10 ^3/uL Monocytes # (Auto) 0.5 0-1.3 10 ^3/uL Eosinophils # (Auto) 0 0-0.8 10 ^3/uL Basophils # (Auto) 0 0-0.2 10 ^3/uL Nucleated Red Blood Cells 0.2 % Sodium Level 139 136-145 mmol/L Potassium Level 3.0 L 3.5-5.1 mmol/L Chloride Level 105 98-107 mmol/L Carbon Dioxide Level 25 20-31 mmol/L Anion Gap 9 5-15 Blood Urea Nitrogen 13 9-23 mg/dL Creatinine 0.90 0.550-1.02 mg/dL Glomerular Filtration Rate Calc 81 >90 mL/min BUN/Creatinine Ratio 14.4 10.0-20.0 Serum Glucose 112 H 74-106 mg/dL Calcium Level 8.6 L 8.7-10.4 mg/dL Magnesium Level 1.8 1.6-2.6 mg/dL Total Bilirubin 6.0 H 0.2-1.0 mg/dL Aspartate Amino Transferase (AST) 67 H 13-40 U/L Alanine Aminotransferase (ALT) 34 7-40 U/L Alkaline Phosphatase 148 H 46-116 U/L Ammonia 47 H 11-32 umol/L Total Protein 4.8 L 5.7-8.2 g/dL Albumin 2.7 L 3.2-4.8 g/dL Lipase 25 12-53 U/L Beta HCG, Quantitative 1.1 L 1.5-4.2 mIU/mL Plasma/Serum Blood Alcohol < 3.0 <10 mg/dL Prothrombin Time 18.3 H 9.3-11.8 sec Prothrombin Time INR 1.80 H 0.9-1.15 Assessment Nonsustained ventricular tachycardia Rule out structural heart disease Severe anemia Fatty liver disease Borderline thrombocytopenia Hypokalemia Alcohol abuse Obesity Plan/Recommendation We will continue with following plan/recommendations (Dr. Isabel): * Echocardiogram to evaluate cardiac function * Initiate low-dose beta-jesus, titrate as tolerated * Monitor and replete electrolytes, keep K>4 and Mag>2 * Monitor H&H, transfuse as needed * Cardiac surveillance * Borderline QT: Avoid QT prolonging medications * Repeat EKG in AM Case reviewed and discussed with . Thank you for allowing us to care for this patient. Please call with any questions or concerns. Critical care time spent: 45 minutes This medical document was created using an electronic medical record system with voice recognition software and computerized dictation system. Although this document has been carefully reviewed, there might still be some phonetic and typographical errors. Occasional wrong-word or ``sound-alike substitutions may have occurred due to the inherent limitations of voice recognition software. These areas are purely typographical due to imperfections of the software programs and do not reflect any compromise in the patient's medical care. Please read the chart carefully and recognize, using context, where these substitutions have occurred. Plan discussed with: Patient, Spouse Date of Service: Jan 26, 2024 Billing Provider: ERICA ISABEL MD Cardiology Common Codes: [id number] INP/OBS CARE (High) GALI CARVALHO PHOTOGRAPHER [employer]ERIAL Jan 26, 2024 17:34
[2024-01-26] MEDS: MAGNESIUM SULFATE 1GM/100ML 100 ML IV ONE (17:36)
[2024-01-26] MEDS: METOPROLOL SUCCINATE XL 50 MG TAB PO ONE (17:36)
[2024-01-26 17:40] LABS: Triglycerides 95 mg/dL (< 150)
[2024-01-26 17:41] LABS: LDL Cholesterol 59 mg/dL (< 100)
[2024-01-26 17:42] LABS: HDL Cholesterol 18 mg/dL (40-59)
[2024-01-26 17:43] LABS: Cholesterol 103 mg/dL (< 200)
[2024-01-26] MEDS: ACETAMINOPHEN 325 MG TAB PO PRN (20:51)
[2024-01-26 21:24] LABS: Hematocrit 25.3 % (36.0-46.0); Hemoglobin 7.6 g/dL (12.2-16.2)
[2024-01-26] MEDS: SODIUM CHLOR 0.9% PF (SALINE LOCK) 10ML VIAL/SYR IV SCH (22:05)
[2024-01-26] MEDS: LACTULOSE 20Gm/30ML SOLN PO SCH (22:06)
[2024-01-26] MEDS: MORPHINE SULFATE INJ 2 MG/ml SYRG IV PRN (23:20)
[2024-01-27] VITALS (10 sets, daily range): BP systolic 95–159; BP diastolic 42–87; PULSE 68–105; RESP 17–20; TEMP 97.6–98.7; O2SAT 95–100
[2024-01-27 05:24] LABS: Basophils # (auto) 0.3 10 ^3/uL (0-0.2); Basophils % (auto) 4.2 % (0.0-2.0); Eosinophils # (auto) 0.7 10 ^3/uL (0-0.8); Eosinophils % (auto) 10.7 % (0.0-7.0); Hematocrit 26.5 % (36.0-46.0); Lymphocytes # (auto) 1.6 10 ^3/uL (0.4-5.4); Lymphocytes % (auto) 26.2 % (10.0-50.0); Mean Corpuscular Hemoglobin 24.5 pg (28.0-32.0); Mean Corpuscular Hgb Conc. 30.1 g/dL (32.0-36.0); Mean Corpuscular Volume 81.3 fL (80.0-100.0); Monocytes # (auto) 0.8 10 ^3/uL (0-1.3); Monocytes % (auto) 12.3 % (0.0-12.0); Neutrophils # (auto) 2.9 10 ^3/uL (1.6-8.6); Neutrophils % (auto) 46.6 % (37.0-80.0); Nucleated Red Blood Cells % 0.2 %; Platelet Count (auto) 109 10^3/uL (140-450); Red Blood Cells 3.25 10^6/uL (4.0-5.20); White Blood Cell 6.2 10^3/uL (4.4-10.8)
[2024-01-27 05:26] LABS: Red Cell Distribution Width 20.7 % (11.8-14.3)
[2024-01-27 05:29] LABS: Chloride 103 mmol/L (98-107); Sodium 138 mmol/L (136-145)
[2024-01-27 05:30] LABS: Anion Gap 8 (5-15); Calcium 8.3 mg/dL (8.7-10.4); Carbon Dioxide 27 mmol/L (20-31)
[2024-01-27 05:35] LABS: BUN/Creatinine Ratio 16.5 (10.0-20.0); Blood Urea Nitrogen 14 mg/dL (9-23); Glucose 99 mg/dL (74-106)
[2024-01-27 05:36] LABS: Magnesium 1.9 mg/dL (1.6-2.6)
[2024-01-27] MEDS: PANTOPRAZOLE 40 MG TAB PO SCH (06:35)
[2024-01-27] MEDS: POTASSIUM CHL 20 Meq TABLET PO ONE (08:48)
[2024-01-27] MEDS: METOPROLOL SUCCINATE XL 50 MG TAB PO SCH (10:36)
[2024-01-27] MEDS: TORSEMIDE 20 MG TAB PO SCH (10:37)
[2024-01-27] MEDS: MAGNESIUM SULFATE 1GM/100ML 100 ML IV ONE (10:37)
--- NOTE | 2024-01-27 11:33 | DVHPN2 ---
Consult Progress Note Subjective Other Systems: Two episodes of nonsustained V-tach seen on event monitor. Patient awake and alert today Objective vital signs Vital Sign Date Time Temp Pulse Resp B/P (MAP) Pulse Ox O2 Delivery O2 Flow Rate FiO2 01/27/24 10:37 105/66 01/27/24 10:36 74 01/27/24 09:19 16 01/27/24 08:16 97.6 99 97.6 01/27/24 01:59 Room Air* 0 21 Total Intake and Output 01/26/24 01/26/24 01/27/24 15:00 23:00 07:00 Intake Total 1740 ml 1090 ml 150 ml Output Total 0 ml 1400 ml Balance 1740 ml 1090 ml -1250 ml medications Current Medications Medications Dose Ordered Sig/Sherice Route Start Time Stop Time Status Last Admin Dose Admin Acetaminophen 650 mg Q6HP PRN PO 01/26/24 15:00 01/26/24 20:51 650 MG Ondansetron HCl 4 mg Q4HP PRN IV 01/26/24 15:00 Morphine Sulfate 1 mg Q4HPRN PRN IV 01/26/24 15:00 01/27/24 08:49 1 MG Nitroglycerin 0.4 mg Q5MINP PRN SL 01/26/24 15:00 Morphine Sulfate 2 mg Q30M PRN IV 01/26/24 15:00 Sodium Chloride 10 ml Q8HR IV 01/26/24 22:00 01/27/24 05:33 10 ML Lactulose 30 ml BID PO 01/26/24 22:00 01/27/24 10:37 30 ML Torsemide 20 mg DAILY PO 01/27/24 10:00 01/27/24 10:37 20 MG Pantoprazole Sodium 40 mg DAILY@0600 PO 01/27/24 06:00 Metoprolol Succinate 25 mg DAILY PO 01/27/24 10:00 01/27/24 10:36 25 MG Examination: GENERAL:Abnormal (Generalized weakness), LUNGS:Normal, CVS:Normal, NEURO:Normal laboratory and microbiology Laboratory Tests 01/27/24 05:00 Test 01/27/24 05:00 Range/Units Serum Glucose 99 74-106 mg/dL Problem List/Assessment/Plan Problem List/Assessment/Plan Nonsustained ventricular tachycardia Rule out structural heart disease Severe anemia s/p PRBC infusion Fatty liver disease Borderline thrombocytopenia Hypokalemia Alcohol abuse Obesity Plan/Recommendation (Dr. Isabel): * Echocardiogram to evaluate cardiac function * Continue low-dose beta-jesus, titrate as tolerated * Monitor and replete electrolytes, keep K>4 and Mag>2 * Monitor H&H, transfuse as needed * Cardiac surveillance * Avoid QT prolonging medications; at risk for torsades de pointes Patient seen and examined at bedside with . At this time, we will recommend to monitor and replete electrolytes and hemoglobin as needed. Repeat EKG today reveals prolonged QT interval. We will recommend to avoid any medications that prolong QT interval. Continue with cardiac surveillance and notify of any ECG changes immediately. Thank you for allowing us to care for this patient. Please call with any questions or concerns. This medical document was created using an electronic medical record system with voice recognition software and computerized dictation system. Although this document has been carefully reviewed, there might still be some phonetic and typographical errors. Occasional wrong-word or ``sound-alike substitutions may have occurred due to the inherent limitations of voice recognition software. These areas are purely typographical due to imperfections of the software programs and do not reflect any compromise in the patient's medical care. Please read the chart carefully and recognize, using context, where these substitutions have occurred. Plan discussed with: Patient, Spouse CC Plasma Assessment Blood Product Administration S: [id number] Date of Service: Jan 27, 2024 Billing Provider: ERICA ISABEL MD Common Visit Codes: [id number] INP/OBS CARE(HIGH) GALI [facility] Jan 27, 2024 11:32
[2024-01-27] MEDS: oxyCODONE HCL 5MG TAB PO PRN (18:59)
[2024-01-27] MEDS: MIDODRINE HCL 10 MG TAB PO SCH (18:59)
--- NOTE | 2024-01-27 22:04 | DVHPN2 ---
Subjective History of Present Illness 43-year-old female presents via EMS to the ED, due to altered mental status, patient woke up confused, incontinent of stool. Patient is noted to be on lactulose, patient's states patient was constipated recently with abdominal pain. Patient was reportedly combative towards EMS personnel. Patient's CT head is negative for acute changes. Patient's CT abdomen shows liver cirrhosis, fatty liver. Patient was noted to have an 7 seconds of V-tach while in ER. Patient's hemoglobin 6.3 platelets 107, lactic acid 2.7, ammonia 47, potassium 3.0. Patient's potassium, Mag were replaced and amiodarone IV was given to patient. Cardiology was consulted. Around 12:30 today patient became oriented x3, was not able to recall events that led to the ER visit but was following simple commands and answering questions, bilateral lower extremity edema also noted 2+ pitting. Patient denies chest pain, headache, dizziness, diaphoresis, shortness of breath, abdominal pain, no nausea, vomiting, fever, or chills endorsed by the patient. Update 01/26-patient is feeling improved but still little lethargic and falling asleep during the interview. However, she is A&O times 3 to 4. She and her at bedside endorse that she was started on lactulose a few months ago and the ran out of lactulose few weeks ago and since then she has been becoming more weak and lethargic. Prior to admit she was feeling less responsive to her which led to the ED with. She has chronic lower extremity pain from likely swelling, she also has chronic back pain. She takes chronic opioids and sees pain management. Reviewed: H&P Changes from previous H/P or p: No Changes General: Per HPI Objective Vitals Vital Signs Date Time Temp Pulse Resp B/P (MAP) Pulse Ox O2 Delivery O2 Flow Rate FiO2 01/27/24 20:00 Room Air* 0 21 01/27/24 16:17 98.3 72 17 105/42 (63) 100 98.3 Intake/Output Intake and Output 01/27/24 07:00 Intake Total 2980 ml Output Total 1400 ml Balance 1580 ml Intake Oral 150 ml IV Total 1630 ml Tube Feeding 0 ml Blood Product 1200 ml Other 0 ml Output Urine Total 1400 ml Stool Total 0 ml Urine/Stool Mix 0 ml Gastric Drainage Total 0 ml Emesis 0 ml Chest Tube Drainage Total 0 ml Drainage Total 0 ml Other 0 ml # Bowel Movements 2 Exam - GEN: Healthy appearing, well-developed, NAD. A&O x3, patient somnolent ( is falling asleep during interview) - HEENT: NC/AT, PERRLA, MMM. Icterus in the eyes bilaterally (more in sclera) - CV: RRR, no m/r/g. - LUNGS: CTAB, no w/r/c. Bibasilar faint rales. - ABD: Soft, NBS, no masses or organomegaly. Abdomen is distended, with multiple stretch rankin and surgical scars, no fluid thrill. - EXTREM: Warm, well perfused. pulses +2 all limbs. Plus one pitting edema bilaterally. Jaundiced skin. No spider angiomas - NEURO: ambulating. grossly no focal deficits, CN2-12 intact no flapping tremor Medications Current Medications Medications Dose Ordered Sig/Sherice Route Start Time Stop Time Status Last Admin Dose Admin Acetaminophen 650 mg Q6HP PRN PO 01/26/24 15:00 01/27/24 15:30 650 MG Ondansetron HCl 4 mg Q4HP PRN IV 01/26/24 15:00 Nitroglycerin 0.4 mg Q5MINP PRN SL 01/26/24 15:00 Sodium Chloride 10 ml Q8HR IV 01/26/24 22:00 01/27/24 05:33 10 ML Lactulose 30 ml BID PO 01/26/24 22:00 01/27/24 10:37 30 ML Torsemide 20 mg DAILY PO 01/27/24 10:00 01/27/24 10:37 20 MG Pantoprazole Sodium 40 mg DAILY@0600 PO 01/27/24 06:00 Metoprolol Succinate 25 mg DAILY PO 01/27/24 10:00 01/27/24 10:36 25 MG Midodrine 10 mg TID@0600,1200,1800 PO 01/27/24 18:00 01/27/24 18:59 10 MG Oxycodone HCl 5 mg Q4HP PRN PO 01/27/24 17:45 Oxycodone HCl 10 mg Q6HPRN PRN PO 01/27/24 17:45 01/27/24 18:59 10 MG Lidocaine 1 patch DAILY TOP 01/28/24 10:00 Laboratory Results Laboratory Tests 01/27/24 05:00 Chemistry Test 01/27/24 05:00 Calcium Level 8.3 mg/dL (8.7-10.4) L Magnesium Level 1.9 mg/dL (1.6-2.6) Urinalysis Test 01/26/24 12:30 Urine Color Yellow (Yellow) Urine Clarity Clear (Clear) Urine pH 6.0 (5.0-9.0) Urine Specific [place] 1.043 (1.001-1.035) Urine Protein Negative (Negative) Urine Ketones 1+ (Negative) H Urine Blood Negative /uL (Negative) Urine Nitrite Negative (Negative) Urine Bilirubin Negative (Negative) Urine Urobilinogen 4 mg/dL (Negative) H Urine Leukocyte Esterase Negative /uL (Negative) Urine RBC 1 /hpf (0 - 4) Urine WBC 1 /hpf (0 - 5) Urine Squamous Epithelial Cells Few /hpf (<5) Urine Bacteria Few /hpf (None Seen) H Urine Glucose Normal mg/dL (Normal) Labs and/or images reviewed: Labs reviewed by me, Image(s) reviewed by me Assessment/Plan Assessment/Plan Update 01/26 - patient is feeling better, A&O x3 or 4., complaining of her chronic pains. Continue lactulose, start antibiotics case this is a GI bleed, we will start midodrine as patient's blood pressure is low but this might be a baseline and stable outpatient, metabolic encephalopathy hyperammonemia - ammonia level elevated 47, AMS likely secondary to hyperammonemia. Usually takes lactulose but ran out - continue lactulose Severe anemia Lactic acidosis - On admit hemoglobin is 6.3 - upon abdomen patient is given 2 units RBC, follow up hemoglobin is appropriately increased - there is no source of bleeding this is likely chronic anemia from cirrhosis - lactic acid 2.7 elevated - lactic acidosis likely secondary to anemia - hemoglobin stable after 2 units, we will transfuse he had further - encourage p.o. hydration - start antibiotics case this could a GI bleed in a cirrhotic Hypotension -could likely be baseline cirrhosis We will start midodrine NSVT - 7 seconds of V-tach on patient Amiodarone was given - cardiology consulted and following Eosinophilia Hypokalemia-will replete as Chronic pain - pain in lower extremities, back pain. Follows pain management outpatient and gets chronic opioids - high risk for constipation we will continue docusate and also getting lactulose - cautious with opiates, no scheduled opiates. Cirrhosis History of alcoholism Anemia Thrombocytopenia Hyperbilirubinemia Jaundice skin - PT/INR is elevated, platelets low 107, - continue Aldactone/Lasix homeless - patient no longer drinking alcohol. UDS and alcohol level negative - needs to follow up with GI to get appropriate management of cirrhosis GI prophylaxis with Protonix DVT prophylaxis we will hold off since patient admitted for anemia Med/tele Plan discussed with: Patient, Spouse My Orders Orders - MARLEN CARLOS MD Procedure Category Date Status Time Pt Request For Service PT 01/27/24 Logged 10:04 Insert Midline ORDERS 01/27/24 Transmitted 13:52 Midodrine Tablet PHA 01/27/24 In Process (Proamatine Tablet) 18:00 Oxycodone Immediate PHA 01/27/24 In Process Rel Tablet 17:45 Oxycodone Immediate PHA 01/27/24 In Process Rel Tablet 17:45 Lidocaine 5% Topical PHA 01/28/24 In Process Patch (Lidoderm 5% 10:00 Date of Service: Jan 27, 2024 Billing Provider: MARLEN CARLOS MD Common Visit Codes: [id number] INP/OBS CARE(HIGH) MARLEN CARLOS MD Jan 27, 2024 22:04
[2024-01-28] VITALS (8 sets, daily range): BP systolic 80–109; BP diastolic 41–60; PULSE 55–70; RESP 17–22; TEMP 97.6–98.6; O2SAT 95–100
[2024-01-28 05:41] LABS: Hemoglobin 7.5 g/dL (12.2-16.2); White Blood Cell 4.6 10^3/uL (4.4-10.8)
[2024-01-28 05:44] LABS: Hematocrit 23.9 % (36.0-46.0); Mean Corpuscular Hgb Conc. 31.5 g/dL (32.0-36.0); Mean Corpuscular Volume 79.3 fL (80.0-100.0); Platelet Count (auto) 100 10^3/uL (140-450); Red Blood Cells 3.01 10^6/uL (4.0-5.20)
[2024-01-28 05:47] LABS: Anion Gap 5 (5-15); Carbon Dioxide 27 mmol/L (20-31); Chloride 105 mmol/L (98-107); Potassium 3.1 mmol/L (3.5-5.1); Sodium 137 mmol/L (136-145)
[2024-01-28 05:48] LABS: Calcium 7.7 mg/dL (8.7-10.4)
[2024-01-28 05:53] LABS: BUN/Creatinine Ratio 12.5 (10.0-20.0); Blood Urea Nitrogen 11 mg/dL (9-23); Glucose 96 mg/dL (74-106); Magnesium 1.9 mg/dL (1.6-2.6); Red Cell Distribution Width 21.3 % (11.8-14.3)
[2024-01-28 05:55] LABS: Band Neutrophils % (manual) 0; Basophils % (manual) 0 (0.0-2.0); Blast Cells 0; Metamyelocytes % 0; Myelocytes % 0; Promyelocytes % 0; Reactive Lymphocytes 0
[2024-01-28 07:34] LABS: Eosinophils % (manual) 18 (0-7); Lymphocytes % (manual) 39 (10.0-50.0); Monocytes % (manual) 6 (0-12); Platelet Estimate Decreased
[2024-01-28 09:33] LABS: Hepatitis B Surface Antigen Negative (Negative)
[2024-01-28] MEDS: LIDOCAINE 5% TOPICAL PATCH TOP SCH (09:52)
[2024-01-28] MEDS: oxyCODONE ER 20 MG TAB PO SCH (09:53)
[2024-01-28 09:54] LABS: Hepatitis A Ab IgM Negative; Hepatitis B Core IgM Negative
[2024-01-28] MEDS: MAGNESIUM SULFATE 1GM/100ML 100 ML IV ONE (09:54)
[2024-01-28] MEDS: POTASSIUM CHL 20 Meq TABLET PO ONE (09:54)
[2024-01-28 09:55] LABS: Hepatitis C Antibody Negative (Negative)
[2024-01-28] MEDS: PANTOPRAZOLE 40 MG/10 ML VIAL INJ IV SCH (09:55)
[2024-01-28] MEDS: cefTRIAXone 1GM/50ML D5W 50 ML IV SCH (09:55)
[2024-01-28] MEDS: SPIRONOLACTONE 25 MG TAB PO SCH (09:57)
[2024-01-28] MEDS: ALBUMIN 25% 100 ML IV ONE (10:16)
--- NOTE | 2024-01-28 10:21 | DVHPN2 ---
Consult Progress Note Subjective Other Systems: Patient is in normal sinus rhythm at time of assessment. One episode of nonsustained V-tach seen overnight on cardiac event monitor. Objective vital signs Vital Sign Date Time Temp Pulse Resp B/P (MAP) Pulse Ox O2 Delivery O2 Flow Rate FiO2 01/28/24 09:57 62 98/45 01/28/24 08:40 97.7 18 96 97.7 01/27/24 20:00 Room Air* 0 21 Total Intake and Output 01/27/24 01/27/24 01/28/24 15:00 23:00 07:00 Intake Total 2000 ml 240 ml Output Total 2700 ml 500 ml Balance -700 ml -260 ml medications Current Medications Medications Dose Ordered Sig/Sherice Route Start Time Stop Time Status Last Admin Dose Admin Acetaminophen 650 mg Q6HP PRN PO 01/26/24 15:00 01/27/24 15:30 650 MG Ondansetron HCl 4 mg Q4HP PRN IV 01/26/24 15:00 Nitroglycerin 0.4 mg Q5MINP PRN SL 01/26/24 15:00 Sodium Chloride 10 ml Q8HR IV 01/26/24 22:00 01/28/24 05:51 10 ML Lactulose 30 ml BID PO 01/26/24 22:00 01/28/24 09:55 30 ML Torsemide 20 mg DAILY PO 01/27/24 10:00 01/27/24 10:37 20 MG Metoprolol Succinate 25 mg DAILY PO 01/27/24 10:00 01/27/24 10:36 25 MG Midodrine 10 mg TID@0600,1200,1800 PO 01/27/24 18:00 01/28/24 05:50 10 MG Oxycodone HCl 5 mg Q4HP PRN PO 01/27/24 17:45 Oxycodone HCl 10 mg Q6HPRN PRN PO 01/27/24 17:45 01/28/24 01:23 10 MG Lidocaine 1 patch DAILY TOP 01/28/24 10:00 01/28/24 09:52 1 PATCH Ceftriaxone Sodium 50 ml @ 100 mls/hr DAILY@09 IV 01/28/24 09:00 01/28/24 09:55 100 MLS/HR Oxycodone HCl 20 mg Q12HR PO 01/28/24 10:00 01/28/24 09:53 20 MG Pantoprazole Sodium 40 mg BID IV 01/28/24 10:00 01/28/24 09:55 40 MG Spironolactone 25 mg DAILY PO 01/28/24 10:00 Examination: GENERAL:Abnormal (Generalized weakness), LUNGS:Normal, CVS:Normal, NEURO:Normal laboratory and microbiology Laboratory Tests 01/28/24 04:45 Test 01/28/24 04:45 Range/Units Serum Glucose 96 74-106 mg/dL Problem List/Assessment/Plan Problem List/Assessment/Plan Nonsustained ventricular tachycardia Severe anemia s/p PRBC infusion Fatty liver disease Borderline thrombocytopenia Hypokalemia Alcohol abuse Obesity Plan/Recommendation (Dr. Isabel): * Echocardiogram reveals EF 55%, RVSP 30 mmHg * Continue low-dose beta-jesus, titrate as tolerated * Monitor and replete electrolytes, keep K>4 and Mag>2 * Monitor H&H, transfuse as needed * Cardiac surveillance * Avoid QT prolonging medications; at risk for torsades de pointes * Repeat EKG shows improved QTc Patient seen and examined at bedside with . At this time, we will recommend to monitor and replete electrolytes and hemoglobin as needed. There is no further inpatient cardiac workup indicated at this time. Please reconsult if needed. Thank you for allowing us to care for this patient. Please call with any questions or concerns. This medical document was created using an electronic medical record system with voice recognition software and computerized dictation system. Although this document has been carefully reviewed, there might still be some phonetic and typographical errors. Occasional wrong-word or ``sound-alike substitutions may have occurred due to the inherent limitations of voice recognition software. These areas are purely typographical due to imperfections of the software programs and do not reflect any compromise in the patient's medical care. Please read the chart carefully and recognize, using context, where these substitutions have occurred. Plan discussed with: Patient, Spouse CC Plasma Assessment Blood Product Administration S: [id number] Date of Service: Jan 28, 2024 Billing Provider: ERICA ISABEL MD Common Visit Codes: [id number] INP/OBS CARE(HIGH) GALI CARVALHO [facility] Jan 28, 2024 10:21
[2024-01-28 11:08] LABS: % Iron Saturation 9.8 % (15-50)
--- NOTE | 2024-01-28 13:14 | DVHINCON2 ---
GI Consult Consult Note GI consult note Date of Consultation: 01/28/2024 Chief Complaint: Concern for HALF-WAY Referring Physician: Dr. Zamora H&P: 43-year-old female admitted with altered mental status, patient woke up confused and incontinent of stool Patient is awake and able to answer questions No abdominal pain. No nausea or vomit. No melena or red blood in stool Patient diagnosed with liver cirrhosis one year ago at [facility]. History of alcohol use Patient treated with lactulose at home No EGD or colonoscopy in past Past Medical History: Anemia, hypertension Past Surgical History: , hernia repair Gastric bypass, right knee replacement Social History: Alcohol abuse, one bottle of wine per day Vapes daily Denies any illicit drug use Family History: Noncontributory Review of Systems: Constitutional: no fever, chill, weight loss HEENT: no eye pain, no hearing loss, no oral lesion, no scleral icterus Heart: no chest pain, no chest pressure Lung: no cough, no dyspnea with exertion Abdomen: see HPI Physical exam: General: NAD, AAOX3 Chest: lung bush clear to auscultation Heart: RRR, no murmur Abdomen: non-distended, no tenderness to palpation, +BS Labs: Labs Test 01/28/24 04:45 01/27/24 05:00 01/26/24 21:03 01/26/24 12:30 Range/Units White Blood Count 4.6 # 4.4-10.8 10^3/uL Red Blood Count 3.01 L 4.0-5.20 10^6/uL Hemoglobin 7.5 L 12.2-16.2 g/dL Hematocrit 23.9 L 36.0-46.0 % Mean Corpuscular Volume 79.3 L 80.0-100.0 fL Mean Corpuscular Hemoglobin 25.0 L 28.0-32.0 pg Mean Corpuscular Hemoglobin Concent 31.5 L 32.0-36.0 g/dL Red Cell Distribution Width 21.3 H 11.8-14.3 % Platelet Count 100 L 140-450 10^3/uL Mean Platelet Volume 8.7 6.9-10.8 fL Neutrophils (%) (Auto) 37.0-80.0 % Lymphocytes (%) (Auto) 10.0-50.0 % Monocytes (%) (Auto) 0.0-12.0 % Basophils (%) (Auto) 0.0-2.0 % Neutrophils # (Auto) 1.6-8.6 10 ^3/uL Lymphocytes # (Auto) 0.4-5.4 10 ^3/uL Monocytes # (Auto) 0-1.3 10 ^3/uL Differential Total Cells Counted 100.0 100 Neutrophils % (Manual) 37 37.0-80.0 Band Neutrophils % (Manual) 0 Lymphocytes % (Manual) 39 10.0-50.0 Monocytes % (Manual) 6 0-12 Eosinophils % (Manual) 18 H 0-7 Basophils % (Manual) 0 0.0-2.0 Metamyelocytes % (manual) 0 Myelocytes % (Manual) 0 Promyelocytes % (Manual) 0 Blast Cells % (Manual) 0 Reactive Lymphocytes 0 Platelet Estimate Decreased Sodium Level 137 136-145 mmol/L Potassium Level 3.1 L 3.5-5.1 mmol/L Chloride Level 105 98-107 mmol/L Carbon Dioxide Level 27 20-31 mmol/L Anion Gap 5 5-15 Blood Urea Nitrogen 11 9-23 mg/dL Creatinine 0.88 0.550-1.02 mg/dL Glomerular Filtration Rate Calc 83 >90 mL/min BUN/Creatinine Ratio 12.5 10.0-20.0 Serum Glucose 96 74-106 mg/dL Calcium Level 7.7 L 8.7-10.4 mg/dL Magnesium Level 1.9 1.6-2.6 mg/dL Iron Level 25 L 50-170 ug/dL Total Iron Binding Capacity 256 250-425 ug/dL Percent Iron Saturation 9.8 L 15-50 % Direct Bilirubin 2.8 H <0.3 mg/dL Lactate Dehydrogenase 351 H 120-246 U/L Hepatitis A IgM Antibody Negative Hepatitis B Surface Antigen Negative Negative Hepatitis B Core IgM Antibody Negative Hepatitis C Antibody Negative Negative Eosinophils (%) (Auto) 10.7 H 0.0-7.0 % Eosinophils # (Auto) 0.7 0-0.8 10 ^3/uL Basophils # (Auto) 0.3 H 0-0.2 10 ^3/uL Nucleated Red Blood Cells 0.2 % Hemoglobin A1c < 4.0 <5.7 % A1C Urine Color Yellow Yellow Urine Clarity Clear Clear Urine pH 6.0 5.0-9.0 Urine Specific [place] 1.043 H 1.001-1.035 Urine Protein Negative Negative Urine Ketones 1+ H Negative Urine Blood Negative Negative /uL Urine Nitrite Negative Negative Urine Bilirubin Negative Negative Urine Urobilinogen 4 H Negative mg/dL Urine Leukocyte Esterase Negative Negative /uL Urine RBC 1 0 - 4 /hpf Urine WBC 1 0 - 5 /hpf Urine Squamous Epithelial Cells Few <5 /hpf Urine Bacteria Few H None Seen /hpf Urine Glucose Normal Normal mg/dL Urine Opiates Screen Neg NEGATIVE Urine Fentanyl Screen Neg NEGATIVE Urine Barbiturates Screen Neg NEGATIVE Urine Phencyclidine Screen Neg NEGATIVE Urine Amphetamines Screen Neg NEGATIVE Urine Benzodiazepines Screen Neg NEGATIVE Urine Cocaine Screen Neg NEGATIVE Urine Cannabinoids Screen Neg NEGATIVE Test 01/26/24 11:23 01/26/24 07:00 01/26/24 06:00 Range/Units Lactic Acid Level 1.9 0.4-2.0 mmol/L Total Bilirubin 6.0 H 0.2-1.0 mg/dL Aspartate Amino Transferase (AST) 67 H 13-40 U/L Alanine Aminotransferase (ALT) 34 7-40 U/L Alkaline Phosphatase 148 H 46-116 U/L Ammonia 47 H 11-32 umol/L Total Protein 4.8 L 5.7-8.2 g/dL Albumin 2.7 L 3.2-4.8 g/dL Triglycerides Level 95 < 150 mg/dL Cholesterol Level 103 < 200 mg/dL LDL Cholesterol 59 < 100 mg/dL HDL Cholesterol 18 L 40-59 mg/dL Lipase 25 12-53 U/L Thyroid Stimulating Hormone (TSH) 1.16 0.55-4.78 uIU/mL Beta HCG, Quantitative 1.1 L 1.5-4.2 mIU/mL Plasma/Serum Blood Alcohol < 3.0 <10 mg/dL Prothrombin Time 18.3 H 9.3-11.8 sec Prothrombin Time INR 1.80 H 0.9-1.15 Imaging: CT abdomen pelvis IMPRESSION: 1. There is no acute process in the abdomen and pelvis.. 2. Gastric postsurgical changes likely related to bypass surgery. There are no dilated small or large bowel loops. 3. Diffuse hepatic steatosis. The liver also demonstrates nodular contour suggesting cirrhotic morphology. 4. Small amount perihepatic ascites. Assessment: Hepatic/metabolic encephalopathy Liver cirrhosis ETOH use Severe anemia Cardiac arrhythmia Plan: Discussed with Dr. Green Monitor labs Liver ultrasound Hepatitis panel Continue lactulose DC alcohol discussed Obtain records from [facility], patient would like to follow-up with Dr. Green on an outpatient basis also We will continue to monitor this patient Thank you for this consult Date of Service: Jan 28, 2024 Billing Provider: SHANE TAYLOR Common Visit Codes: CONSULT ONLY Consultation Codes: [id number] CONSULT <45MIN SHANE TAYLOR Jan 28, 2024 13:13
--- NOTE | 2024-01-28 13:47 | DVHSR ---
APPROVED REPORT EXAM: Two-dimensional and M-mode echocardiogram with Doppler and color Doppler. Blood Pressure: 91/41 mmHg INDICATION Evaluate cardiac function RISK FACTORS Obesity: Height: 5' 9", Weight: 288 DIMENSIONS LVDd4.9 (3.8-5.7cm)LA (2D)4.7 (1.9-4.0cm)Aortic Root3.3 (2.0-3.7cm) LVDs3.5 (2.5-4.0cm)LA (MM) (1.9-4.0cm)Aortic Cusp Exc2.1 (1.5-2.0cm) EF (%) 55.0 (55-70%)Rt. Atrium4.3 (1.9-4.0cm)Asc. Aorta cm IVSd1.2 (0.7-1.1cm)RV (D) (1.8-2.4cm) PWd1.2 (0.7-1.1cm) Mitral Valve MitralMitral Stenosis E wave1.00m/sMV Mean GR.1mmHg A wave0.90m/sMV Peak GR.4mmHg E/A ratio1.12D MVAcm2 DECEL [id number] 1/2 [id number] IVRTmsDop MVA2.10cm2 Aortic Valve Aortic ValveAortic Stenosis V11.50m/Maria Esther Mean GR.9mmHg V21.90m/Maria Esther Peak GR.15mmHg LVOT Diameter2.2 (1.8-2.4cm)Doppler AVA3.00cm2 Pulmonic Valve V20.80m/s Tricuspid Valve TR Velocity2.49m/s [id number] Other Information Quality : Technically LimitedRhythm : Technically limited study due to body habitus. Conclusion Normal left ventricular size and dimension. Normal left ventricular systolic function estimated ejec tion fraction 55%. There is a grade 1 diastolic dysfunction. Normal right ventricular size and dimension. Normal right ventricular systolic function. Slightly i ncreased right ventricular systolic pressure 30 mm of mercury. Normal biatrial size and dimension. Normal aortic valve structure and function. Normal mitral valve structure and function. Normal tricuspid valve structure and function. The pulmonary valve is grossly normal. No pericardial effusion.
--- NOTE | 2024-01-28 21:39 | DVHPN2 ---
Subjective History of Present Illness 43-year-old female presents via EMS to the ED, due to altered mental status, patient woke up confused, incontinent of stool. Patient is noted to be on lactulose, patient's states patient was constipated recently with abdominal pain. Patient was reportedly combative towards EMS personnel. Patient's CT head is negative for acute changes. Patient's CT abdomen shows liver cirrhosis, fatty liver. Patient was noted to have an 7 seconds of V-tach while in ER. Patient's hemoglobin 6.3 platelets 107, lactic acid 2.7, ammonia 47, potassium 3.0. Patient's potassium, Mag were replaced and amiodarone IV was given to patient. Cardiology was consulted. Around 12:30 today patient became oriented x3, was not able to recall events that led to the ER visit but was following simple commands and answering questions, bilateral lower extremity edema also noted 2+ pitting. Patient denies chest pain, headache, dizziness, diaphoresis, shortness of breath, abdominal pain, no nausea, vomiting, fever, or chills endorsed by the patient. Update 01/26-patient is feeling improved but still little lethargic and falling asleep during the interview. However, she is A&O times 3 to 4. She and her at bedside endorse that she was started on lactulose a few months ago and the ran out of lactulose few weeks ago and since then she has been becoming more weak and lethargic. Prior to admit she was feeling less responsive to her which led to the ED with. She has chronic lower extremity pain from likely swelling, she also has chronic back pain. She takes chronic opioids and sees pain management. Reviewed: H&P Changes from previous H/P or p: No Changes General: Per HPI Objective Vitals Vital Signs Date Time Temp Pulse Resp B/P (MAP) Pulse Ox O2 Delivery O2 Flow Rate FiO2 01/28/24 17:00 97.6 64 17 101/54 (70) 100 97.6 01/28/24 08:00 Room Air* 0 21 Intake/Output Intake and Output 01/28/24 07:00 Intake Total 2240 ml Output Total 3200 ml Balance -960 ml Intake Oral 2140 ml IV Total 100 ml Output Urine Total 3200 ml # Bowel Movements 1 Exam - GEN: Healthy appearing, well-developed, NAD. A&O x3, patient somnolent ( is falling asleep during interview) - HEENT: NC/AT, PERRLA, MMM. Icterus in the eyes bilaterally (more in sclera) - CV: RRR, no m/r/g. - LUNGS: CTAB, no w/r/c. Bibasilar faint rales. - ABD: Soft, NBS, no masses or organomegaly. Abdomen is distended, with multiple stretch rankin and surgical scars, no fluid thrill. - EXTREM: Warm, well perfused. pulses +2 all limbs. Plus one pitting edema bilaterally. Jaundiced skin. No spider angiomas - NEURO: ambulating. grossly no focal deficits, CN2-12 intact , has flapping tremor+ (asterixis present) Medications Current Medications Medications Dose Ordered Sig/Sherice Route Start Time Stop Time Status Last Admin Dose Admin Acetaminophen 650 mg Q6HP PRN PO 01/26/24 15:00 01/27/24 15:30 650 MG Ondansetron HCl 4 mg Q4HP PRN IV 01/26/24 15:00 Nitroglycerin 0.4 mg Q5MINP PRN SL 01/26/24 15:00 Sodium Chloride 10 ml Q8HR IV 01/26/24 22:00 01/28/24 14:50 10 ML Lactulose 30 ml BID PO 01/26/24 22:00 01/28/24 09:55 30 ML Torsemide 20 mg DAILY PO 01/27/24 10:00 01/27/24 10:37 20 MG Metoprolol Succinate 25 mg DAILY PO 01/27/24 10:00 01/27/24 10:36 25 MG Midodrine 10 mg TID@0600,1200,1800 PO 01/27/24 18:00 01/28/24 18:15 10 MG Oxycodone HCl 5 mg Q4HP PRN PO 01/27/24 17:45 Oxycodone HCl 10 mg Q6HPRN PRN PO 01/27/24 17:45 01/28/24 01:23 10 MG Lidocaine 1 patch DAILY TOP 01/28/24 10:00 01/28/24 09:52 1 PATCH Ceftriaxone Sodium 50 ml @ 100 mls/hr DAILY@09 IV 01/28/24 09:00 01/28/24 09:55 100 MLS/HR Oxycodone HCl 20 mg Q12HR PO 01/28/24 10:00 01/28/24 09:53 20 MG Pantoprazole Sodium 40 mg BID IV 01/28/24 10:00 01/28/24 09:55 40 MG Spironolactone 25 mg DAILY PO 01/28/24 10:00 Laboratory Results Laboratory Tests 01/28/24 04:45 Chemistry Test 01/28/24 04:45 Calcium Level 7.7 mg/dL (8.7-10.4) L Magnesium Level 1.9 mg/dL (1.6-2.6) LFT Test 01/28/24 04:45 Direct Bilirubin 2.8 mg/dL (<0.3) H Urinalysis Test 01/26/24 12:30 Urine Color Yellow (Yellow) Urine Clarity Clear (Clear) Urine pH 6.0 (5.0-9.0) Urine Specific [place] 1.043 (1.001-1.035) Urine Protein Negative (Negative) Urine Ketones 1+ (Negative) H Urine Blood Negative /uL (Negative) Urine Nitrite Negative (Negative) Urine Bilirubin Negative (Negative) Urine Urobilinogen 4 mg/dL (Negative) H Urine Leukocyte Esterase Negative /uL (Negative) Urine RBC 1 /hpf (0 - 4) Urine WBC 1 /hpf (0 - 5) Urine Squamous Epithelial Cells Few /hpf (<5) Urine Bacteria Few /hpf (None Seen) H Urine Glucose Normal mg/dL (Normal) Labs and/or images reviewed: Labs reviewed by me, Image(s) reviewed by me Assessment/Plan Assessment/Plan Update 01/27 - patient is feeling better, A&O x3 or 4., complaining of her chronic pains. Continue lactulose, antibiotics, midodrine, cont her chronic opieates. GI onbaord now for possible [facility] eval. Cirrhosis History of alcoholism Anemia Thrombocytopenia Jaundice skin - PT/INR is elevated, platelets low 107, - continue Aldactone/Lasix home - patient no longer drinking alcohol. UDS and alcohol level negative.. denies hx IVDU. - hep panel (viral acute) - negative - needs to follow up with GI outpt to get appropriate management of cirrhosis Hyperbilirubinemia - Dbili 2.8H, TB 6.0 (indirect bili higher) hyperammonemia - ammonia level elevated 47, AMS likely secondary to hyperammonemia. Usually takes lactulose but ran out - continue lactulose Acute liver failure - asterixis, acute encaphlopathy, LFT elevated, INR elevated. on remote hx of etoh abuse. MDF 31 (very borderline, no acute etoh binge/abuse) - consult GI for eval. : Liver ultrasound pend, Hepatitis panel, Continue lactulose. GI following. metabolic encephalopathy Lactic acidosis - On admit hemoglobin is 6.3 . upon abdomen patient is given 2 units RBC, follow up hemoglobin is appropriately increased; no bleeding source. - lactic acid 2.7 elevated - lactic acidosis likely secondary to anemia - hemoglobin stable after 2 units, we will transfuse further if Hb<7 - encourage p.o. hydration - start antibiotics case this could a GI bleed in a cirrhotic Anemia - On admit hemoglobin is 6.3 . upon abdomen patient is given 2 units RBC, follow up hemoglobin is appropriately increased. no bleeding source. - mch microcytic, RDW high - concern for JESUS - TIBC lower end - suggests ACD (likley 2/2 cirrhosis) - LDH high ; hapto pending - send peripheral smear for schistocytes. Hypotension -could likely be baseline cirrhosis We will start midodrine NSVT - 7 seconds of V-tach on patient - echo is normal w mild high RV sys pressure 30mmHg. EF 55%, grade 1 LVDD. - Amiodarone was given - cardiology consulted and following Eosinophilia Hypokalemia-will replete as Chronic pain - pain in lower extremities, back pain. Follows pain management outpatient and gets chronic opioids - high risk for constipation we will continue docusate and also getting lactulose - will try avoid iv opiates and use ch. slow release opiates similar to her home regimen. (oxycontin...) GI prophylaxis with Protonix DVT prophylaxis we will hold off since patient admitted for anemia Med/tele Plan discussed with: Patient My Orders Orders - MARLEN CARLOS MD Procedure Category Date Status Time Ceftriaxone 1gm/50ml PHA 01/28/24 In Process D5w (Rocephin) 09:00 * Gi [facility] CONS 01/28/24 Transmitted 08:03 Oxycodone Er Tablet PHA 01/28/24 In Process (Oxycontin Er Tablet 10:00 Pantoprazole PHA 01/28/24 In Process (Protonix) 10:00 Stool Occult Blood LAB 01/28/24 Logged 08:07 Haptoglobin LAB 01/28/24 In Process 08:07 Date of Service: Jan 28, 2024 Billing Provider: MARLEN CARLOS MD Common Visit Codes: [id number] INP/OBS CARE(HIGH) MARLEN CARLOS MD Jan 28, 2024 21:39
[2024-01-29] VITALS (7 sets, daily range): BP systolic 91–114; BP diastolic 44–69; PULSE 73–86; RESP 16–19; TEMP 97.7–98.1; O2SAT 97–99
[2024-01-29] MEDS: oxyCODONE HCL 5MG TAB PO PRN (05:43)
--- NOTE | 2024-01-29 10:07 | ECG ---
[facility] Test Date: 2024-01-26 Test Time: 15:50:01 Pat Name: YOU ROBERTS Department: ER Room: [facility]6T B Gender: F Census Enumerator: DR MCCRARY: 1980 Requested By: GALI CARVALHO Order Number: [id number] Reading MD: Nirav Ward Measurements Intervals [place] Rate: 105 P: 47 VA: 155 QRS: 24 QRSD: 93 T: 39 QT: 370 QTc: 490 Interpretive Statements Sinus tachycardia Ventricular premature complex Low voltage, extremity and precordial leads Consider anterior infarct Electronically Signed On 02-04-2024 9:24:30 PST by Nirav Ward Please click the below link to view image of tracing.
[2024-01-29 10:45] LABS: Alanine Aminotransferase 38 U/L (7-40); Albumin 2.8 g/dL (3.2-4.8); Alkaline Phosphatase 141 U/L (46-116); Anion Gap 6 (5-15); Aspartate Aminotransferase 71 U/L (13-40); Blood Urea Nitrogen 10 mg/dL (9-23); Calcium 8.4 mg/dL (8.7-10.4); Carbon Dioxide 28 mmol/L (20-31); Chloride 105 mmol/L (98-107); Glucose 109 mg/dL (74-106); Potassium 3.5 mmol/L (3.5-5.1); Sodium 139 mmol/L (136-145)
[2024-01-29 10:46] LABS: Total Protein 4.8 g/dL (5.7-8.2)
[2024-01-29 10:49] LABS: Ferritin 16.1 ng/mL (10-291); Folate (Folic Acid) 13.36 ng/mL (>5.38)
[2024-01-29 10:58] LABS: Hematocrit 25.6 % (36.0-46.0); Hemoglobin 7.7 g/dL (12.2-16.2); Mean Corpuscular Hemoglobin 24.6 pg (28.0-32.0); Mean Corpuscular Hgb Conc. 29.9 g/dL (32.0-36.0); Mean Corpuscular Volume 82.2 fL (80.0-100.0); Platelet Count (auto) 110 10^3/uL (140-450); Red Blood Cells 3.12 10^6/uL (4.0-5.20); White Blood Cell 4.6 10^3/uL (4.4-10.8)
[2024-01-29 11:02] LABS: Band Neutrophils % (manual) 0; Basophils % (manual) 0 (0.0-2.0); Blast Cells 0; Metamyelocytes % 0; Myelocytes % 0; Promyelocytes % 0; Reactive Lymphocytes 0
[2024-01-29] MEDS ORDERED: IRON SUCROSE COMPLEX 110 ML IV SCH (12:00)
[2024-01-29] MEDS: SODIUM FERR GLUC 62.5MG/5ML 110 ML IV SCH (12:10)
[2024-01-29 12:48] LABS: Eosinophils % (manual) 26 (0-7); Lymphocytes % (manual) 21 (10.0-50.0); Monocytes % (manual) 6 (0-12); Platelet Estimate Decreased
[2024-01-29 12:49] LABS: Anisocytosis Slight; Hypochromia Slight
--- NOTE | 2024-01-29 21:03 | DVHPN2 ---
Progress Note Date Seen: Jan 29, 2024 Resident Creating Document: MARYELLEN JANSEN RESIDENT Has the PT tested + for MRSA If YES, has PT been informed?: No Medical Necessity Reason Pt with a Central, PICC or Fol: No Medical Necessity Reason This is a 43-year-old female with a history of Liver cirrhosis, ETOH use on lactulose was brought to the ED in an altered level of consciousness. Patient was found confused and incontinent via EMS. Patient was reportedly combative towards EMS personnel. At the time of my assessment, patient was alert and oriented. According to the patient, she has been on lactulose, but she had ran out . She was unable to get a refill until we goes for a follow up. In the ED, Patient's CT head is negative for acute changes. CT abdomen shows liver cirrhosis, fatty liver. Patient was noted to have an 7 seconds of V-tach while in ER. Initial workup revealed hgb: 6.3 platelets 107, lactic acid 2.7, ammonia 47, potassium 3.0. Subjective Review of Systems Constitutional: No fever no chills no feeling of malaise HEENT:Denies headache, ear pain, discharges, conjunctivitis,icterus Cardiovascular: Denies chest pain, palpitation, orthopnea, PND, pedal edema Respiratory: Cough, no sputum production, shortness of breath, hemoptysis, GI: Denies abdominal pain, nausea, vomiting, diarrhea, hematemesis, hematochezia, : Denies frequency, urgency, hematuria, Derm: itchy Heme/onco No easy bruising, no bleeding disorders, epistasis, Objective vital signs Vital Sign Date Time Temp Pulse Resp B/P (MAP) Pulse Ox O2 Delivery O2 Flow Rate FiO2 01/29/24 17:21 98.0 75 18 111/55 (73) 98 98.0 01/29/24 08:00 Room Air* 0 21 Total Intake and Output 01/28/24 01/28/24 01/29/24 15:00 23:00 07:00 Intake Total 250 ml 800 ml 640 ml Output Total 700 ml 750 ml Balance 250 ml 100 ml -110 ml medications Current Medications Medications Dose Ordered Sig/Sherice Route Start Time Stop Time Status Last Admin Dose Admin Acetaminophen 650 mg Q6HP PRN PO 01/26/24 15:00 01/29/24 20:13 650 MG Ondansetron HCl 4 mg Q4HP PRN IV 01/26/24 15:00 Nitroglycerin 0.4 mg Q5MINP PRN SL 01/26/24 15:00 Sodium Chloride 10 ml Q8HR IV 01/26/24 22:00 01/29/24 14:06 10 ML Lactulose 30 ml BID PO 01/26/24 22:00 01/29/24 09:28 30 ML Torsemide 20 mg DAILY PO 01/27/24 10:00 01/27/24 10:37 20 MG Metoprolol Succinate 25 mg DAILY PO 01/27/24 10:00 01/27/24 10:36 25 MG Midodrine 10 mg TID@0600,1200,1800 PO 01/27/24 18:00 01/29/24 18:41 10 MG Oxycodone HCl 5 mg Q4HP PRN PO 01/27/24 17:45 01/29/24 15:51 5 MG Oxycodone HCl 10 mg Q6HPRN PRN PO 01/27/24 17:45 01/28/24 01:23 10 MG Lidocaine 1 patch DAILY TOP 01/28/24 10:00 01/29/24 09:29 1 PATCH Ceftriaxone Sodium 50 ml @ 100 mls/hr DAILY@09 IV 01/28/24 09:00 01/29/24 09:29 100 MLS/HR Oxycodone HCl 20 mg Q12HR PO 01/28/24 10:00 01/29/24 09:28 20 MG Pantoprazole Sodium 40 mg BID IV 01/28/24 10:00 01/29/24 09:29 40 MG Spironolactone 25 mg DAILY PO 01/28/24 10:00 Iron Sucrose 110 ml @ 110 mls/hr DAILY@1200 IV 01/29/24 12:00 02/02/24 12:59 UNV Ferric Sodium Gluconate Complex 110 ml @ 110 mls/hr DAILY@1200 IV 01/29/24 12:00 02/02/24 12:59 01/29/24 12:10 110 MLS/HR Examination General: NAD, AAOX3, jaundiced, scratches on the lower extremities HEENT: Icterus, Chest: lung bush clear to auscultation Heart: RRR, no murmur Abdomen: distended, no tenderness to palpation, +BS, soft laboratory and microbiology Laboratory Tests 01/29/24 10:16 Test 01/29/24 10:16 Range/Units Serum Glucose 109 H 74-106 mg/dL Problem List/Assessment/Plan Problem List/Assessment/Plan Hepatic/metabolic encephalopathy --Ammonia : 47 Liver cirrhosis ETOH use Severe anemia Cardiac arrhythmia Hypokalemia Plan: Monitor Ammonia level Continue lactulose, spironolactone, lasix DC alcohol discussed Obtain records from [facility] ([place]), patient would like to follow-up with Dr. Green on an outpatient basis Goal care discussed for more than 19 minutes: Full code Case and plan discussed with Dr. Green Plan discussed with: Patient CC Plasma Assessment Blood Product Administration S: [id number] MARYELLEN JANSEN RESIDENT Jan 29, 2024 21:03
--- NOTE | 2024-01-29 23:24 | DVHPN2 ---
Subjective History of Present Illness 43-year-old female presents via EMS to the ED, due to altered mental status, patient woke up confused, incontinent of stool. Patient is noted to be on lactulose, patient's states patient was constipated recently with abdominal pain. Patient was reportedly combative towards EMS personnel. Patient's CT head is negative for acute changes. Patient's CT abdomen shows liver cirrhosis, fatty liver. Patient was noted to have an 7 seconds of V-tach while in ER. Patient's hemoglobin 6.3 platelets 107, lactic acid 2.7, ammonia 47, potassium 3.0. Patient's potassium, Mag were replaced and amiodarone IV was given to patient. Cardiology was consulted. Around 12:30 today patient became oriented x3, was not able to recall events that led to the ER visit but was following simple commands and answering questions, bilateral lower extremity edema also noted 2+ pitting. Patient denies chest pain, headache, dizziness, diaphoresis, shortness of breath, abdominal pain, no nausea, vomiting, fever, or chills endorsed by the patient. Update - 01/26-patient is feeling improved but still little lethargic and falling asleep during the interview. However, she is A&O times 3 to 4. She and her at bedside endorse that she was started on lactulose a few months ago and the ran out of lactulose few weeks ago and since then she has been becoming more weak and lethargic. Prior to admit she was feeling less responsive to her which led to the ED with. She has chronic lower extremity pain from likely swelling, she also has chronic back pain. She takes chronic opioids and sees pain management. -- 01/28 patient is feeling great today. She is a 0 X 3-4 today. Labs are looking stable, LDH elevated but T bili is decreasing, and diff shows mildly higher amount of indirect bili. LFTs are stable. Ammonia is the same despite lactulose but she is improving clinically. Hemoglobin is low but stable in mid 7s. Hepatitis panel is negative. Haptoglobin was sent but seems to have disappeared. Reviewed: H&P Changes from previous H/P or p: No Changes General: Per HPI Objective Vitals Vital Signs Date Time Temp Pulse Resp B/P (MAP) Pulse Ox O2 Delivery O2 Flow Rate FiO2 01/29/24 21:00 97.7 74 19 114/69 (84) 98 97.7 01/29/24 20:00 Room Air* 0 21 Intake/Output Intake and Output 01/29/24 07:00 Intake Total 1690 ml Output Total 1450 ml Balance 240 ml Intake Oral 1440 ml IV Total 250 ml Output Urine Total 1450 ml Exam - GEN: Healthy appearing, well-developed, NAD. A&O x3, patient somnolent ( is falling asleep during interview) - HEENT: NC/AT, PERRLA, MMM. Icterus in the eyes bilaterally (more in sclera) - CV: RRR, no m/r/g. - LUNGS: CTAB, no w/r/c. Bibasilar faint rales. - ABD: Soft, NBS, no masses or organomegaly. Abdomen is distended, with multiple stretch rankin and surgical scars, no fluid thrill. - EXTREM: Warm, well perfused. pulses +2 all limbs. Plus one pitting edema bilaterally. Jaundiced skin. No spider angiomas - NEURO: ambulating. grossly no focal deficits, CN2-12 intact , has flapping tremor+ (asterixis present) Medications Current Medications Medications Dose Ordered Sig/Sherice Route Start Time Stop Time Status Last Admin Dose Admin Acetaminophen 650 mg Q6HP PRN PO 01/26/24 15:00 01/29/24 20:13 650 MG Ondansetron HCl 4 mg Q4HP PRN IV 01/26/24 15:00 Nitroglycerin 0.4 mg Q5MINP PRN SL 01/26/24 15:00 Sodium Chloride 10 ml Q8HR IV 01/26/24 22:00 01/29/24 21:36 10 ML Lactulose 30 ml BID PO 01/26/24 22:00 01/29/24 21:37 30 ML Torsemide 20 mg DAILY PO 01/27/24 10:00 01/27/24 10:37 20 MG Metoprolol Succinate 25 mg DAILY PO 01/27/24 10:00 01/27/24 10:36 25 MG Midodrine 10 mg TID@0600,1200,1800 PO 01/27/24 18:00 01/29/24 18:41 10 MG Oxycodone HCl 5 mg Q4HP PRN PO 01/27/24 17:45 01/29/24 15:51 5 MG Oxycodone HCl 10 mg Q6HPRN PRN PO 01/27/24 17:45 01/28/24 01:23 10 MG Lidocaine 1 patch DAILY TOP 01/28/24 10:00 01/29/24 09:29 1 PATCH Ceftriaxone Sodium 50 ml @ 100 mls/hr DAILY@09 IV 01/28/24 09:00 01/29/24 09:29 100 MLS/HR Oxycodone HCl 20 mg Q12HR PO 01/28/24 10:00 01/29/24 21:36 20 MG Pantoprazole Sodium 40 mg BID IV 01/28/24 10:00 01/29/24 21:37 40 MG Spironolactone 25 mg DAILY PO 01/28/24 10:00 Iron Sucrose 110 ml @ 110 mls/hr DAILY@1200 IV 01/29/24 12:00 02/02/24 12:59 UNV Ferric Sodium Gluconate Complex 110 ml @ 110 mls/hr DAILY@1200 IV 01/29/24 12:00 02/02/24 12:59 01/29/24 12:10 110 MLS/HR Laboratory Results Laboratory Tests 01/29/24 10:16 Chemistry Test 01/29/24 10:16 Albumin 2.8 g/dL (3.2-4.8) L Calcium Level 8.4 mg/dL (8.7-10.4) L Total Protein 4.8 g/dL (5.7-8.2) L LFT Test 01/29/24 10:16 Alanine Aminotransferase (ALT) 38 U/L (7-40) Alkaline Phosphatase 141 U/L (46-116) H Aspartate Amino Transferase (AST) 71 U/L (13-40) H Total Bilirubin 4.0 mg/dL (0.2-1.0) H Urinalysis Test 01/26/24 12:30 Urine Color Yellow (Yellow) Urine Clarity Clear (Clear) Urine pH 6.0 (5.0-9.0) Urine Specific [place] 1.043 (1.001-1.035) Urine Protein Negative (Negative) Urine Ketones 1+ (Negative) H Urine Blood Negative /uL (Negative) Urine Nitrite Negative (Negative) Urine Bilirubin Negative (Negative) Urine Urobilinogen 4 mg/dL (Negative) H Urine Leukocyte Esterase Negative /uL (Negative) Urine RBC 1 /hpf (0 - 4) Urine WBC 1 /hpf (0 - 5) Urine Squamous Epithelial Cells Few /hpf (<5) Urine Bacteria Few /hpf (None Seen) H Urine Glucose Normal mg/dL (Normal) Labs and/or images reviewed: Labs reviewed by me, Image(s) reviewed by me Assessment/Plan Assessment/Plan Update - 01/28 patient is feeling great today. She is a 0 X 3-4 today. Labs are looking stable, LDH elevated but T bili is decreasing, and diff shows mildly higher amount of indirect bili. LFTs are stable. Ammonia is the same despite lactulose but she is improving clinically. Hemoglobin is low but stable in mid 7s. Hepatitis panel is negative. Haptoglobin was sent but seems to have disappeared. Cirrhosis History of alcoholism Anemia Thrombocytopenia Jaundice skin - PT/INR is elevated, platelets low 107, - patient no longer drinking alcohol. UDS and alcohol level negative.. denies hx IVDU. - hep panel (viral acute) - negative - needs to follow up with GI outpt to get appropriate management of cirrhosis - continue Aldactone/Lasix home dose - low blood pressure, monitoring was added with great response. Hyperbilirubinemia - Dbili 2.8H, TB 6.0 (indirect bili higher) hyperammonemia - ammonia level elevated 47, AMS likely secondary to hyperammonemia. Usually takes lactulose but ran out - continue lactulose Acute liver failure, possible but less likely - asterixis, acute encaphlopathy, LFT elevated, INR elevated. on remote hx of etoh abuse. MDF 31 (very borderline, no acute etoh binge/abuse) - consult GI for eval. : Liver ultrasound pend, Hepatitis panel, Continue lactulose. GI following. metabolic encephalopathy Lactic acidosis - On admit hemoglobin is 6.3 . upon abdomen patient is given 2 units RBC, follow up hemoglobin is appropriately increased; no bleeding source. - lactic acid 2.7 elevated - lactic acidosis likely secondary to anemia - hemoglobin stable after 2 units, we will transfuse further if Hb<7 - encourage p.o. hydration - start antibiotics incase this could a GI bleed in a cirrhotic Anemia - On admit hemoglobin is 6.3 . upon abdomen patient is given 2 units RBC, follow up hemoglobin is appropriately increased. no bleeding source. - mch microcytic, RDW high - concern for JESUS - ferritin is on the lower and-possible Jesus - TIBC lower end - suggests ACD (likley 2/2 cirrhosis) - LDH high ; hapto pending - send peripheral smear for schistocytes. Hypotension -could likely be baseline cirrhosis We will start midodrine NSVT - 7 seconds of V-tach on patient - echo is normal w mild high RV sys pressure 30mmHg. EF 55%, grade 1 LVDD. - Amiodarone was given - cardiology consulted and following Eosinophilia Hypokalemia-will replete as Chronic pain - pain in lower extremities, back pain. Follows pain management outpatient and gets chronic opioids - high risk for constipation we will continue docusate and also getting lactulose - will try avoid iv opiates and use ch. slow release opiates similar to her home regimen. (oxycontin...) GI prophylaxis with Protonix DVT prophylaxis we will hold off since patient admitted for anemia Med/tele Plan discussed with: Patient My Orders Orders - MARLEN CARLOS MD Procedure Category Date Status Time Communication Order ORDERS 01/29/24 Transmitted 09:45 Date of Service: Jan 29, 2024 Billing Provider: MARLEN CARLOS MD Common Visit Codes: [id number] INP/OBS CARE(HIGH) MARLEN CARLOS MD Jan 29, 2024 23:24
[2024-01-30] VITALS (8 sets, daily range): BP systolic 100–157; BP diastolic 32–78; PULSE 65–79; RESP 17–20; TEMP 97.6–98.4; O2SAT 92–100
[2024-01-30 04:35] LABS: Hematocrit 24.6 % (36.0-46.0); Hemoglobin 7.7 g/dL (12.2-16.2); Mean Corpuscular Hemoglobin 25.2 pg (28.0-32.0); Mean Corpuscular Hgb Conc. 31.2 g/dL (32.0-36.0); Mean Corpuscular Volume 80.9 fL (80.0-100.0); Platelet Count (auto) 97 10^3/uL (140-450); Red Blood Cells 3.04 10^6/uL (4.0-5.20); White Blood Cell 3.9 10^3/uL (4.4-10.8)
[2024-01-30 04:38] LABS: Red Cell Distribution Width 21.7 % (11.8-14.3)
[2024-01-30 04:39] LABS: Band Neutrophils % (manual) 0; Basophils % (manual) 0 (0.0-2.0); Blast Cells 0; Metamyelocytes % 0; Myelocytes % 0; Promyelocytes % 0; Reactive Lymphocytes 0
[2024-01-30 04:56] LABS: Alanine Aminotransferase 37 U/L (7-40); Albumin 2.7 g/dL (3.2-4.8); Alkaline Phosphatase 136 U/L (46-116); Anion Gap 4 (5-15); Aspartate Aminotransferase 70 U/L (13-40); BUN/Creatinine Ratio 11.1 (10.0-20.0); Blood Urea Nitrogen 8 mg/dL (9-23); Calcium 8.2 mg/dL (8.7-10.4); Carbon Dioxide 28 mmol/L (20-31); Chloride 105 mmol/L (98-107); Glucose 96 mg/dL (74-106); Potassium 3.4 mmol/L (3.5-5.1); Sodium 137 mmol/L (136-145); Total Protein 4.5 g/dL (5.7-8.2)
[2024-01-30 05:50] LABS: Anisocytosis Slight; Eosinophils % (manual) 15 (0-7); Hypochromia Slight; Lymphocytes % (manual) 23 (10.0-50.0); Monocytes % (manual) 8 (0-12)
[2024-01-30 05:51] LABS: Platelet Estimate Decreased
[2024-01-30] MEDS: IRON SUCROSE COMPLEX 100 ML IV SCH (12:45)
[2024-01-30] MEDS ORDERED: MIDO10TA3 PO (16:22)
[2024-01-30] MEDS ORDERED: METO25TA93 PO (16:22)
[2024-01-30] MEDS ORDERED: LACT10SO3 PO (16:22)
[2024-01-30] MEDS ORDERED: FAMO20TA10 PO (16:22)
--- NOTE | 2024-01-30 16:24 | DVHDS2 ---
Discharge Summary Date of Admission Jan 26, 2024 at 14:52 Date of Discharge: Jan 30, 2024 Labs/Diagnostic Data: Laboratory Results Test 01/30/24 11:30 01/30/24 04:12 01/29/24 10:16 01/28/24 04:45 Ammonia 49 umol/L (11-32) White Blood Count 3.9 10^3/uL (4.4-10.8) Red Blood Count 3.04 10^6/uL (4.0-5.20) Hemoglobin 7.7 g/dL (12.2-16.2) Hematocrit 24.6 % (36.0-46.0) Mean Corpuscular Volume 80.9 fL (80.0-100.0) Mean Corpuscular Hemoglobin 25.2 pg (28.0-32.0) Mean Corpuscular Hemoglobin Concent 31.2 g/dL (32.0-36.0) Red Cell Distribution Width 21.7 % (11.8-14.3) Platelet Count 97 10^3/uL (140-450) Mean Platelet Volume 9.0 fL (6.9-10.8) Neutrophils (%) (Auto) % (37.0-80.0) Lymphocytes (%) (Auto) % (10.0-50.0) Monocytes (%) (Auto) % (0.0-12.0) Eosinophils (%) (Auto) % (0.0-7.0) Basophils (%) (Auto) % (0.0-2.0) Neutrophils # (Auto) 10 ^3/uL (1.6-8.6) Lymphocytes # (Auto) 10 ^3/uL (0.4-5.4) Monocytes # (Auto) 10 ^3/uL (0-1.3) Differential Total Cells Counted 100.0 (100) Neutrophils % (Manual) 54 (37.0-80.0) Band Neutrophils % (Manual) 0 Lymphocytes % (Manual) 23 (10.0-50.0) Monocytes % (Manual) 8 (0-12) Eosinophils % (Manual) 15 (0-7) Basophils % (Manual) 0 (0.0-2.0) Metamyelocytes % (manual) 0 Myelocytes % (Manual) 0 Promyelocytes % (Manual) 0 Blast Cells % (Manual) 0 Reactive Lymphocytes 0 Platelet Estimate Decreased Hypochromasia (manual) Slight Anisocytosis (manual) Slight Sodium Level 137 mmol/L (136-145) Potassium Level 3.4 mmol/L (3.5-5.1) Chloride Level 105 mmol/L (98-107) Carbon Dioxide Level 28 mmol/L (20-31) Anion Gap 4 (5-15) Blood Urea Nitrogen 8 mg/dL (9-23) Creatinine 0.72 mg/dL (0.550-1.02) Glomerular Filtration Rate Calc 106 mL/min (>90) BUN/Creatinine Ratio 11.1 (10.0-20.0) Serum Glucose 96 mg/dL (74-106) Calcium Level 8.2 mg/dL (8.7-10.4) Total Bilirubin 4.0 mg/dL (0.2-1.0) Aspartate Amino Transferase (AST) 70 U/L (13-40) Alanine Aminotransferase (ALT) 37 U/L (7-40) Alkaline Phosphatase 136 U/L (46-116) Total Protein 4.5 g/dL (5.7-8.2) Albumin 2.7 g/dL (3.2-4.8) Ferritin 16.1 ng/mL (10-291) Vitamin B12 Level 2697 pg/mL (211-911) Folic Acid 13.36 ng/mL (>5.38) Anti-Nuclear Antibody Screen Negative (Negative) Haptoglobin <10 mg/dL (42-296) Magnesium Level 1.9 mg/dL (1.6-2.6) Iron Level 25 ug/dL (50-170) Total Iron Binding Capacity 256 ug/dL (250-425) Percent Iron Saturation 9.8 % (15-50) Direct Bilirubin 2.8 mg/dL (<0.3) Lactate Dehydrogenase 351 U/L (120-246) Hepatitis A IgM Antibody Negative Hepatitis B Surface Antigen Negative (Negative) Hepatitis B Core IgM Antibody Negative Hepatitis C Antibody Negative (Negative) Test 01/27/24 05:00 01/26/24 21:03 01/26/24 12:30 01/26/24 11:23 Eosinophils # (Auto) 0.7 10 ^3/uL (0-0.8) Basophils # (Auto) 0.3 10 ^3/uL (0-0.2) Nucleated Red Blood Cells 0.2 % Hemoglobin A1c < 4.0 % A1C (<5.7) Urine Color Yellow (Yellow) Urine Clarity Clear (Clear) Urine pH 6.0 (5.0-9.0) Urine Specific [place] 1.043 (1.001-1.035) Urine Protein Negative (Negative) Urine Ketones 1+ (Negative) Urine Blood Negative /uL (Negative) Urine Nitrite Negative (Negative) Urine Bilirubin Negative (Negative) Urine Urobilinogen 4 mg/dL (Negative) Urine Leukocyte Esterase Negative /uL (Negative) Urine RBC 1 /hpf (0 - 4) Urine WBC 1 /hpf (0 - 5) Urine Squamous Epithelial Cells Few /hpf (<5) Urine Bacteria Few /hpf (None Seen) Urine Glucose Normal mg/dL (Normal) Urine Opiates Screen Neg (NEGATIVE) Urine Fentanyl Screen Neg (NEGATIVE) Urine Barbiturates Screen Neg (NEGATIVE) Urine Phencyclidine Screen Neg (NEGATIVE) Urine Amphetamines Screen Neg (NEGATIVE) Urine Benzodiazepines Screen Neg (NEGATIVE) Urine Cocaine Screen Neg (NEGATIVE) Urine Cannabinoids Screen Neg (NEGATIVE) Lactic Acid Level 1.9 mmol/L (0.4-2.0) Test 01/26/24 07:00 01/26/24 06:00 Triglycerides Level 95 mg/dL (< 150) Cholesterol Level 103 mg/dL (< 200) LDL Cholesterol 59 mg/dL (< 100) HDL Cholesterol 18 mg/dL (40-59) Lipase 25 U/L (12-53) Thyroid Stimulating Hormone (TSH) 1.16 uIU/mL (0.55-4.78) Beta HCG, Quantitative 1.1 mIU/mL (1.5-4.2) Plasma/Serum Blood Alcohol < 3.0 mg/dL (<10) Prothrombin Time 18.3 sec (9.3-11.8) Prothrombin Time INR 1.80 (0.9-1.15) Other Laboratory Tests 01/30/24 04:12 Brief Hx & Hospital Course: 43-year-old female presents via EMS to the ED, due to altered mental status, patient woke up confused, incontinent of stool. Patient is noted to be on lactulose, patient's states patient was constipated recently with abdominal pain. Patient was reportedly combative towards EMS personnel. Patient's CT head is negative for acute changes. Patient's CT abdomen shows liver cirrhosis, fatty liver. Patient was noted to have an 7 seconds of V-tach while in ER. Lab workup shows elevated ammonia level, PT/INR elevated, platelets low 107, T bili 6.0 elevated, transaminitis, lactic acidosis 2.7, anemia with hemoglobin 6.3 requiring 3 units RBCs to be given (anemia workup shows microcytic with RDW high, ferritin lower NL, TIBC lower NL; suggesting mixed ADA and ACD process likely secondary to cirrhosis). For the NSVT initially amiodarone was given and Cardiology consulted; beta-jesus was started metoprolol XL 25 mg daily and no further V-tach occurred. Echo done showed mildly elevated RV pressures, EF 55%, grade 1 LVDD. Patient was given lactulose for hyperammonemia, monitoring for hypotension which improved her blood pressures, given transient antibiotics for concern of GI bleed with cirrhosis, for cirrhosis there was some concern of acute liver failure as patient had encephalopathy and asterixis and GI was consulted; MDM was 31.6 and no steroids were started. GI plan do give patient IV iron, continue lactulose and follow up outpatient. Hepatitis panel was negative. UDS and alcohol level negative. Plan need to refer patient to deviate GI for closer following for cirrhosis. All labs and syndrome appear to be consistent with stable cirrhosis, there is concern for this being decompensated cirrhosis, however outpatient GI eval to make further determination. Patient is stable to follow up outpatient with the plan below. Diagnosis: Acute encephalopathy (resolved) 2/2 hyperammonemia; hyperbilirubinemia and juandice stable; anemia/thrombocytopenia 2/2 chronic cirrhosis (likley decompensated); anemia requiring transfusion; NSVT/Cardiac arrhythmia; history etoh abuse; unknown cirrhosis cause (PIZARRO/NAFLD vs etoh) discharge plan - continue lactulose - start midodrine 10mg 3x/day - start pepcid 20mg 2x/day - start metoprolol XL 25 daily - continue aldactone 25 mg daiy and demadex 20mg daily (ratio to be optimized with GI clinic f/u) - follow-up with GI Dr Green at [facility] for monitor cirrhosis and screening for complications - consume low salt diet - avoid tylenol, travel to developing countries (high risk of viral hepatitis contaminated water), ; avoid undercook foods (specially undercook shellfish, clams/oyesters etc) - defer pain medication to pain specialist. - f/u with PCP - note to avoid QT prolonging drugs. need to follow blood Hb level closely. Visitation and planning required 35 minutes Condition at Discharge: Fair Final Diagnosis/Problems List acute encephalopathy due to hyperammonemia Discharge Disposition: Home Discharge Instruct/Medications Diet: Cardiac 2g Na,low cholest Activity: No Restrictions, As Tolerated Follow Up/Referral: [facility], PCP Medications: see dc instruction below. Discharge Statement: "Patient was advised to return to the ER or call 911 if any headaches, dizziness, shortness of breath, chest pain, abdominal pain, bleeding, fevers, or worsening of medical condition. Patient was counseled about treatment plan, medications, possible side effects, patientverbalized understanding. All questions were answered to the best of my ability. This discharge took greater then 30 minutes in planning, reviewing documentation, counseling the patient, and discussing with other team members." ASSESSMENT ASSESSMENT Assessment Acute encephalopathy (resolved) 2/2 hyperammonemia; hyperbilirubinemia and juandice stable; anemia/thrombocytopenia 2/2 chronic cirrhosis (likley decompensated); anemia requiring transfusion; NSVT/Cardiac arrhythmia; history etoh abuse; unknown cirrhosis cause (PIZARRO/NAFLD vs etoh) Date of Service: Jan 30, 2024 Billing Provider: MARLEN CARLOS MD Common Visit Codes: 66641-HYB/OBS DISCH DAY >30min MARLEN CARLOS MD Jan 30, 2024 16:24
--- NOTE | 2024-01-30 19:47 | DVHPN2 ---
Progress Note Date Seen: Jan 30, 2024 Resident Creating Document: MARYELLEN JANSEN RESIDENT Has the PT tested + for MRSA If YES, has PT been informed?: No Medical Necessity Reason Pt with a Central, PICC or Fol: No Medical Necessity Reason stable and ok to discharge. Recommended outpatient GI follow up Subjective Review of Systems Constitutional: No fever no chills no feeling of malaise HEENT: Denies headache, ear pain, discharges, conjunctivitis,icterus Cardiovascular: Denies chest pain, palpitation, orthopnea, PND, pedal edema Respiratory: Cough, no sputum production, shortness of breath, hemoptysis, GI: Denies abdominal pain, nausea, vomiting, diarrhea, hematemesis, hematochezia, : Denies frequency, urgency, hematuria, Derm: itchy-resolved Heme/onco: o easy bruising, no bleeding disorders, epistasis, Objective vital signs Vital Sign Date Time Temp Pulse Resp B/P (MAP) Pulse Ox O2 Delivery O2 Flow Rate FiO2 01/30/24 17:11 98.4 72 18 92 01/30/24 17:09 106/67 (80) 01/30/24 07:59 Room Air* 0 21 Total Intake and Output 01/29/24 01/29/24 01/30/24 15:00 23:00 07:00 Intake Total 160 ml 1350 ml 300 ml Output Total 600 ml 160 ml Balance 160 ml 750 ml 140 ml medications Current Medications Medications Dose Ordered Sig/Sherice Route Start Time Stop Time Status Last Admin Dose Admin Acetaminophen 650 mg Q6HP PRN PO 01/26/24 15:00 01/30/24 07:03 650 MG Ondansetron HCl 4 mg Q4HP PRN IV 01/26/24 15:00 Nitroglycerin 0.4 mg Q5MINP PRN SL 01/26/24 15:00 Sodium Chloride 10 ml Q8HR IV 01/26/24 22:00 01/30/24 16:52 10 ML Lactulose 30 ml BID PO 01/26/24 22:00 01/30/24 09:16 30 ML Torsemide 20 mg DAILY PO 01/27/24 10:00 01/30/24 09:21 20 MG Metoprolol Succinate 25 mg DAILY PO 01/27/24 10:00 01/30/24 09:19 25 MG Midodrine 10 mg TID@0600,1200,1800 PO 01/27/24 18:00 01/30/24 18:01 10 MG Oxycodone HCl 5 mg Q4HP PRN PO 01/27/24 17:45 01/30/24 09:20 5 MG Oxycodone HCl 10 mg Q6HPRN PRN PO 01/27/24 17:45 01/30/24 16:51 10 MG Lidocaine 1 patch DAILY TOP 01/28/24 10:00 01/30/24 09:21 1 PATCH Ceftriaxone Sodium 50 ml @ 100 mls/hr DAILY@09 IV 01/28/24 09:00 01/30/24 09:16 100 MLS/HR Oxycodone HCl 20 mg Q12HR PO 01/28/24 10:00 01/30/24 10:40 20 MG Spironolactone 25 mg DAILY PO 01/28/24 10:00 01/30/24 09:19 25 MG Iron Sucrose 110 ml @ 110 mls/hr DAILY@1200 IV 01/29/24 12:00 02/02/24 12:59 UNV Ferric Sodium Gluconate Complex 110 ml @ 110 mls/hr DAILY@1200 IV 01/29/24 12:00 02/02/24 12:59 01/29/24 12:10 110 MLS/HR Iron Sucrose 100 ml @ 100 mls/hr DAILY@1200 IV 01/30/24 12:14 02/02/24 12:59 01/30/24 12:45 100 MLS/HR Famotidine 20 mg Q12HR PO 01/30/24 22:00 Examination General: NAD, AAOX3, jaundiced, scratches on the lower extremities-- improving HEENT: Icterus, Chest: lung bush clear to auscultation Heart: RRR, no murmur Abdomen: distended, no tenderness to palpation, +BS, soft laboratory and microbiology Laboratory Tests 01/30/24 04:12 Test 01/30/24 04:12 Range/Units Serum Glucose 96 74-106 mg/dL Problem List/Assessment/Plan Problem List/Assessment/Plan Hepatic/metabolic encephalopathy --Ammonia : 47--> 49 Liver cirrhosis ETOH use Severe anemia Cardiac arrhythmia Hypokalemia Clinically stable and doing well Plan: Okay to be discharged from GI standpoint Continue lactulose, spironolactone, lasix on discharge DC alcohol discussed Follow-up with the GI clinic post discharge Goal care discussed for more than 19 minutes: Full code Case and plan discussed with Dr. Green Plan discussed with: Patient CC Plasma Assessment Blood Product Administration S: [id number] MARYELLEN JANSEN RESIDENT Jan 30, 2024 19:47
[2024-01-30] MEDS ORDERED: FAMOTIDINE 20 MG TAB PO SCH (22:00)
--- NOTE | 2024-01-31 09:05 | ECG ---
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
--- NOTE | 2024-01-31 09:25 | ECG ---
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
--- NOTE | 2024-01-31 09:27 | ECG ---
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
== END 2024-01-30 19:48 | disposition home or self-care (01) ==
LOC: EDBD 04:32 → ER 04:32 → TELE 14:52 → TELE-WESTW 23:49
PROVIDERS: ADMIT Student in an Organized Health Care Education/Training Program; ATTEND Student in an Organized Health Care Education/Training Program
PROC: 30233N1 Transfusion of Nonautologous Red Blood Cells into Peripheral Vein, Percutaneous Approach (ICD-10-PCS; principal; 2024-01-26)
PROC: 05HB33Z Insertion of Infusion Device into Right Basilic Vein, Percutaneous Approach (ICD-10-PCS; 2024-01-27)
PROC: B54MZZA Ultrasonography of Right Upper Extremity Veins, Guidance (ICD-10-PCS; 2024-01-27)
DX: K76.82 Hepatic encephalopathy (principal); G93.41 Metabolic encephalopathy; D69.6 Thrombocytopenia, unspecified; D72.10 Eosinophilia, unspecified; E72.20 Disorder of urea cycle metabolism, unspecified; E87.20 Acidosis, unspecified; I47.20 Ventricular tachycardia, unspecified; K72.00 Acute and subacute hepatic failure without coma; E87.6 Hypokalemia; E66.9 Obesity, unspecified; F10.10 Alcohol abuse, uncomplicated; G89.29 Other chronic pain; I10 Essential (primary) hypertension; K92.2 Gastrointestinal hemorrhage, unspecified; K74.60 Unspecified cirrhosis of liver; F17.210 Nicotine dependence, cigarettes, uncomplicated; Y90.9 Presence of alcohol in blood, level not specified; Z96.651 Presence of right artificial knee joint; F17.290 Nicotine dependence, other tobacco product, uncomplicated; I49.9 Cardiac arrhythmia, unspecified; D64.9 Anemia, unspecified; Z88.5 Allergy status to narcotic agent; Z88.2 Allergy status to sulfonamides; Z98.84 Bariatric surgery status; Z68.41 Body mass index [BMI] 40.0-44.9, adult; Z59.00 Homelessness unspecified; Z79.891 Long term (current) use of opiate analgesic
CPT/HCPCS: 36415; 70450; 71045; 74177; 80048; 80053; 80061; 80074; 80307; 80320; 81001; 82140; 82248; 82607; 82728; 82746; 83010; 83036; 83540; 83550; 83605; 83615; 83690; 83735; 84443; 84702; 85007; 85014; 85018; 85025; 85027; 85610; 86038; 86850; 86900; 86901; 86920; 93005; 93306; 96361; 96365; 96366; 96372; 96375; 97163; 99291; G0378; J2470; J3480; P9047